=== PATIENT | male | born 1960 | race Hispanic/Latino ===

== ENCOUNTER 2019-10-08 20:42 | Observation (INO) | payer SELFPAY ==
[2019-10-08 21:31] LABS: Absolute Lymphocytes (CBC) 4.8 K/uL (0.7-4.9); Basophils % 0.9 % (0-1.3); Hematocrit 42.5 % (39.6-49.0); Lymphocytes % 41.9 % (15.3-44.8); MPV 8.3 fL (7.6-11.3); RBC Red Blood Cell Count 4.68 M/uL (4.33-5.43)
[2019-10-08 21:42] LABS: BUN Blood Urea Nitrogen 15 mg/dL (7-18); Bicarbonate 25 mmol/L (21-32); Glucose Level 132 mg/dL (74-106); Magnesium 2.2 mg/dL (1.8-2.4); Potassium 3.5 mmol/L (3.5-5.1); Sodium Level 140 mmol/L (136-145); Troponin (Emerg Dept Use Only) < 0.02 ng/mL (0.0-0.045)
--- NOTE | 2019-10-08 23:04 | ER ---
Nurse's Notes [facility] Name: Heber Peña Age: 59 yrs Sex: Male : 1960 Arrival Date: 10/08/2019 Time: 20:43 Bed 19 Private MD: Diagnosis: Headache;Numbness to left side of face Presentation: 10/08 20:51 Presenting complaint: Patient states: dizzyness, headache, blurred vision since yesterday morning. has hx of bp problems. van negative. Transition of care: patient was not received from another setting of care. Onset of symptoms was October 07, 2019 at 08:00. Risk Assessment: Do you want to hurt yourself or someone else? Patient reports no desire to harm self or others. Initial Sepsis Screen: Does the patient meet any 2 criteria? No. Patient's initial sepsis screen is negative. Does the patient have a suspected source of infection? No. Patient's initial sepsis screen is negative. Care prior to arrival: None. 20:51 Method Of Arrival: Ambulatory 20:51 Acuity: ISIDRA 3 Triage Assessment: 20:54 Headache History: The patient has had previous headaches and this one is similar to previous episodes. General: Appears in no apparent distress. comfortable, Behavior is calm, cooperative, appropriate for age. Pain: Complains of pain in top of head, left frontal area, left side of the back of head, right frontal area and right side of the back of head Pain currently is 6 out of 10 on a pain scale. Pain began gradually, 2-3 days ago. Neuro: No deficits noted. Level of Consciousness is awake, alert, obeys commands, Oriented to person, place, time, situation, Medicare Biller are equal bilaterally Moves all extremities. Full function Gait is steady, Speech is normal. 21:23 Pain: Also complains of no other associated symptoms. ls4 Historical: - Allergies: 20:50 No Known Allergies; ls4 - Home Meds: 10/09 00:25 aspirin 81 mg Oral TbEC 1 tab once daily [Active]; nitroglycerin 0.4 mg SL subl 1 tab ch [Active]; prasugrel oral oral 1 tab once daily [Active]; B complex [Active]; - PMHx: 10/08 20:50 CVA; Depression; gastritis; High Cholesterol; Hypertension; ls4 20:54 Myocardial infarction; ch - PSHx: 20:54 cardiac cath; cardiac stent; ch - Immunization history:: Adult Immunizations up to date. - Coronavirus screen:: The patient has NOT traveled to [place], [place], or [place] in the past 14 days. The patient has NOT had contact with known/suspected case of Coronavirus?. - Social history:: Smoking status: . - Ebola Screening: : Patient negative for fever greater than or equal to 101.5 degrees Fahrenheit, and additional compatible Ebola Virus Disease symptoms Patient denies exposure to infectious person Patient denies travel to an Ebola-affected area in the 21 days before illness onset No symptoms or risks identified at this time. Screenin:45 VAN Screening: Arm Drift: Patient shows no arm weakness. Patient is VAN negative. The ls4 patient has not been NPO before screening. The patient is currently on the following diet: regular The patient is alert, able to follow commands. The patient does not exhibit slurred or garbled speech The patient is not exhibiting difficulty speaking. The patient does not exhibit difficulty understanding words. The patient is able to swallow own secretions with no drooling or need for suction. Patient tolerated one teaspoon of water. No drooling, immediate coughing, gurgling, or clearing of the throat was noted. The patient tolerated 90mL of water. No drooling, immediate coughing, gurgling, or clearing of the throat was noted. The patient passed the bedside swallow screening. Oral medications may be given as ordered. Contact Physician for further diet orders. 21:22 Abuse screen: Denies threats or abuse. Denies injuries from another. Nutritional ls4 screening: No deficits noted. Tuberculosis screening: No symptoms or risk factors identified. Fall Risk None identified. Assessment: 21:46 General: Appears in no apparent distress. comfortable, Behavior is calm, cooperative. ls4 Pain: Complains of pain in face and right side of the back of head and right frontal area and left side of the back of head and left frontal area and top of head Pain currently is 7 out of 10 on a pain scale. Neuro: No deficits noted. Level of Consciousness is awake, alert, obeys commands, Oriented to person, place, time, situation, Medicare Biller are equal bilaterally Moves all extremities. Gait is steady, Speech is normal, Facial symmetry appears normal, Pupils are PERRLA, Intact Reports paresthesias in face. Cardiovascular: Denies chest pain, diaphoresis, fatigue, lightheadedness, nausea, palpitations, shortness of breath, syncope, vomiting, Heart tones S1 S2 Capillary refill < 3 seconds Clubbing of nail beds is absent JVD is absent Patient's skin is warm and dry. Rhythm is regular Chest pain is denied. Respiratory: Airway is patent Respiratory effort is even, unlabored, Respiratory pattern is regular, Breath sounds are clear bilaterally. GI: No deficits noted. : No deficits noted. Derm: Skin is pink, warm \T\ dry. Musculoskeletal: No deficits noted. 22:00 Reassessment: Patient appears in no apparent distress at this time. Patient and/or ch family updated on plan of care and expected duration. Pain level reassessed. 23:00 Reassessment: Patient appears in no apparent distress at this time. Patient and/or ch family updated on plan of care and expected duration. Pain level reassessed. Patient is alert, oriented x 3, equal unlabored respirations, skin warm/dry/pink. 10/09 00:25 Reassessment: Patient appears in no apparent distress at this time. No changes from previously documented assessment. Patient and/or family updated on plan of care and expected duration. Pain level reassessed. Patient is alert, oriented x 3, equal unlabored respirations, skin warm/dry/pink. report called to john paul Blanco orders to be in the computer. Vital Signs: 10/08 20:57 BP 166 / 92; Pulse 82; Resp 20; Temp 98.7(O); Pulse Ox 100% on R/A; Weight 75.3 kg; Height 5 ft. 5 in. (165.10 cm); Pain 6/10; 21:43 BP 144 / 91; Pulse 83; Resp 14; Pulse Ox 99% on R/A; Pain 7/10; ls4 22:40 BP 132 / 80; Pulse 82; Resp 14; Pulse Ox 99% on R/A; Pain 7/10; ls4 10/09 00:30 BP 147 / 81; Pulse 75; Resp 14; Pulse Ox 99% on R/A; Pain 6/10; ls4 10/08 20:57 Body Mass Index 27.62 (75.30 kg, 165.10 cm) Vitals: 10/08 20:57 Cardiac Rhythm Assessment Regular Sinus rhythm. ls4 [place] Coma Score: 21:10 Eye Response: spontaneous(4). Verbal Response: oriented(5). Motor Response: obeys kb commands(6). Total: 15. NIH Stroke Scale Scores: 20:45 NIHSS Score: 0 ls4 22:59 NIHSS Score: 1 kb ED Course: 20:43 Patient arrived in ED. jg7 20:48 Iram Villeda RN is Primary Nurse. ls4 20:52 Triage completed. ch 20:53 Jackelin Zuluaga FNP-C is PHCP. kb 20:53 Timo Salazar MD is Attending Physician. kb 20:57 Arm band placed on left wrist. Patient placed in an exam room, on a stretcher, on pulse ch oximetry. 21:14 CT Head Brain wo Cont In Process Unspecified. EDMS 21:18 EKG done. ls4 21:21 Patient has correct armband on for positive identification. Bed in low position. Call ls4 light in reach. Side rails up X 1. groundwater monitoring technician on. Pulse ox on. NIBP on. Warm blanket given. Verbal reassurance given. Diet: Patient is NPO. 21:21 No provider procedures requiring assistance completed. Initial lab(s) drawn, by ED ls4 staff, sent to lab. Inserted saline lock: 18 gauge in left antecubital area, using aseptic technique. Blood collected. Patient maintains SpO2 saturation greater than 95% on room air. 23:04 Sebastien Gonzalez is Hospitalizing Provider. kb 10/09 00:40 Patient admitted, IV remains in place. vc Administered Medications: 10/08 23:25 Drug: NS 0.9% 1000 ml Route: IV; Rate: 1000 ml; Site: left antecubital; ls4 23:25 Drug: Thiamine 100 mg Route: IV; Rate: calculated rate; Site: left antecubital; ls4 Outcome: 23:04 Decision to Hospitalize by Provider. kb 10/09 00:40 Admitted to Med/surg accompanied by nurse, via wheelchair, room 225, with chart, Report vc called to Francis 00:40 Condition: good vc 00:40 Instructed on the need for admit. 00:42 Patient left the ED. ls4 NIH Stroke Scale - NIH Stroke Score Date: 10/08/2019 Time: 20:45 Total Score = 0 1a. Level of Consciousness (LOC) - 0(Alert) 1b. Level of Consciousness (LOC) (Year \T\ Age) - 0(Both) 1c. LOC Commands (Open \T\ Closes Eyes/Dispatch Supervisor) - 0(Both) 2. Best Gaze (Lateral Gaze Paresis) - 0(Normal) 3. Visual Field Loss - 0(No visual loss) 4. Facial Palsy - 0(Normal) 5a. Left Arm: Motor (10-second hold) - 0(No drift) 5b. Right Arm: Motor (10-second hold) - 0(No drift) 6a. Left Leg: Motor (5-second hold - always test supine) - 0(No drift) 6b. Right Leg: Motor (5-second hold - always test supine) - 0(No drift) 7. Limb Ataxia (finger/nose \T\ heel/hernandez - test with eyes open) - 0(Absent) 8. Sensory Loss (pinprick arms/legs/face) - 0(Normal) 9. Best Language: Aphasia (description/naming/reading) - 0(No aphasia) 10. Dysarthria (speech clarity - read or repeat words) - 0(Normal) 11. Extinction and Inattention (visual/tactile/auditory/spatial/personal) - 0(No abnormality) Initials: ls4 NIH Stroke Scale - NIH Stroke Score Date: 10/08/2019 Time: 22:59 Total Score = 1 1a. Level of Consciousness (LOC) - 0(Alert) 1b. Level of Consciousness (LOC) (Year \T\ Age) - 0(Both) 1c. LOC Commands (Open \T\ Closes Eyes/Dispatch Supervisor) - 0(Both) 2. Best Gaze (Lateral Gaze Paresis) - 0(Normal) 3. Visual Field Loss - 0(No visual loss) 4. Facial Palsy - 0(Normal) 5a. Left Arm: Motor (10-second hold) - 0(No drift) 5b. Right Arm: Motor (10-second hold) - 0(No drift) 6a. Left Leg: Motor (5-second hold - always test supine) - 0(No drift) 6b. Right Leg: Motor (5-second hold - always test supine) - 0(No drift) 7. Limb Ataxia (finger/nose \T\ heel/hernandez - test with eyes open) - 0(Absent) 8. Sensory Loss (pinprick arms/legs/face) - 1(Mild to moderate loss) 9. Best Language: Aphasia (description/naming/reading) - 0(No aphasia) 10. Dysarthria (speech clarity - read or repeat words) - 0(Normal) 11. Extinction and Inattention (visual/tactile/auditory/spatial/personal) - 0(No abnormality) Initials: kb Signatures: Dispatcher [employer] Jackelin Toth, COUNTY COURT JUDGE-C COUNTY COURT JUDGE-CkSabina Narvaez, RN RN Iram Chowdhury RN RN ls4 Shalonda Lopez7 Lidia Tong RN RN vc
--- NOTE | 2019-10-08 23:05 | EDPHYS ---
Physician Documentation [facility] Name: Heber Peña Age: 59 yrs Sex: Male : 1960 Arrival Date: 10/08/2019 Time: 20:43 Bed 19 Private MD: ED Physician Timo Salazar HPI: 10/08 23:04 This 59 yrs old Male presents to ER via Ambulatory with complaints of kb Headache, High Blood Pressure, Numbness Of Face. 23:05 The patient presents to the emergency department with paresthesias of the left side of kb the face, that is mild. Onset: The symptoms/episode began/occurred yesterday. Context: occurred at home. Associated signs and symptoms: Pertinent positives: headache. Severity of symptoms: in the emergency department the symptoms are unchanged. Patient's baseline: Neuro: alert and fully oriented, Motor: no deficits, Ambulation: walks without assistance, Speech: normal, The patient has a previous history of CVA. Current symptoms: paralysis or paresis, of the left cheek, that is mild. The patient has experienced a previous episode, last week. The patient has not recently seen a physician. 23:21 Patient reports headache and numbness to left side of face that started yesterday. kb Reports similar symptoms last week that resolved.. Historical: - Allergies: 20:50 No Known Allergies; ls4 - Home Meds: 02 00:25 aspirin 81 mg Oral TbEC 1 tab once daily [Active]; nitroglycerin 0.4 mg SL subl 1 tab ch [Active]; prasugrel oral oral 1 tab once daily [Active]; B complex [Active]; - PMHx: 10/08 20:50 CVA; Depression; gastritis; High Cholesterol; Hypertension; ls4 20:54 Myocardial infarction; ch - PSHx: 20:54 cardiac cath; cardiac stent; ch - Immunization history:: Adult Immunizations up to date. - Coronavirus screen:: The patient has NOT traveled to [place], [place], or [place] in the past 14 days. The patient has NOT had contact with known/suspected case of Coronavirus?. - Social history:: Smoking status: . - Ebola Screening: : Patient negative for fever greater than or equal to 101.5 degrees Fahrenheit, and additional compatible Ebola Virus Disease symptoms Patient denies exposure to infectious person Patient denies travel to an Ebola-affected area in the 21 days before illness onset No symptoms or risks identified at this time. ROS: 21:14 Constitutional: Negative for fever, chills, and weight loss, ENT: Negative for injury, kb pain, and discharge, Neck: Negative for injury, pain, and swelling, Cardiovascular: Negative for chest pain, palpitations, and edema, Respiratory: Negative for shortness of breath, cough, wheezing, and pleuritic chest pain, Abdomen/GI: Negative for abdominal pain, nausea, vomiting, diarrhea, and constipation, Back: Negative for injury and pain, MS/Extremity: Negative for injury and deformity, Skin: Negative for injury, rash, and discoloration. 21:14 Neuro: Positive for headache, decreased sensation to left side of face. Exam: 21:10 Constitutional: This is a well developed, well nourished patient who is awake, alert, kb and in no acute distress. Head/Face: Normocephalic, atraumatic. ENT: Nares patent. No nasal discharge, no septal abnormalities noted. Tympanic membranes are normal and external auditory canals are clear. Oropharynx with no redness, swelling, or masses, exudates, or evidence of obstruction, uvula midline. Mucous membranes moist. Neck: Trachea midline, no thyromegaly or masses palpated, and no cervical lymphadenopathy. Supple, full range of motion without nuchal rigidity, or vertebral point tenderness. No Meningismus. Chest/axilla: Normal chest wall appearance and motion. Nontender with no deformity. No lesions are appreciated. Cardiovascular: Regular rate and rhythm with a normal S1 and S2. No gallops, murmurs, or rubs. Normal PMI, no JVD. No pulse deficits. Respiratory: Lungs have equal breath sounds bilaterally, clear to auscultation and percussion. No rales, rhonchi or wheezes noted. No increased work of breathing, no retractions or nasal flaring. Abdomen/GI: Soft, non-tender, with normal bowel sounds. No distension or tympany. No guarding or rebound. No evidence of tenderness throughout. Back: No spinal tenderness. No costovertebral tenderness. Full range of motion. Skin: Warm, dry with normal turgor. Normal color with no rashes, no lesions, and no evidence of cellulitis. MS/ Extremity: Pulses equal, no cyanosis. Neurovascular intact. Full, normal range of motion. Neuro: Awake and alert, GCS 15, oriented to person, place, time, and situation. Cranial nerves II-XII grossly intact. Motor strength 5/5 in all extremities. Sensory grossly intact. Cerebellar exam normal. Normal gait. Vital Signs: 20:57 BP 166 / 92; Pulse 82; Resp 20; Temp 98.7(O); Pulse Ox 100% on R/A; Weight 75.3 kg; ch Height 5 ft. 5 in. (165.10 cm); Pain 6/10; 21:43 BP 144 / 91; Pulse 83; Resp 14; Pulse Ox 99% on R/A; Pain 7/10; ls4 22:40 BP 132 / 80; Pulse 82; Resp 14; Pulse Ox 99% on R/A; Pain 7/10; ls4 10/09 00:30 BP 147 / 81; Pulse 75; Resp 14; Pulse Ox 99% on R/A; Pain 6/10; 4 10/08 20:57 Body Mass Index 27.62 (75.30 kg, 165.10 cm) NIH Stroke Scale Scores: 10/08 20:45 NIHSS Score: 0 ls4 22:59 NIHSS Score: 1 kb [place] Coma Score: 21:10 Eye Response: spontaneous(4). Verbal Response: oriented(5). Motor Response: obeys kb commands(6). Total: 15. MDM: 20:53 Patient medically screened. kb 21:10 Data reviewed: vital signs, nurses notes. Data interpreted: Pulse oximetry: on room air kb is 100 %. Interpretation: normal. 23:00 Counseling: I had a detailed discussion with the patient and/or guardian regarding: the kb historical points, exam findings, and any diagnostic results supporting the discharge/admit diagnosis, lab results, radiology results, the need for further work-up and treatment in the hospital. 10/08 20:53 Order name: Troponin (emerg Dept Use Only); Complete Time: 21:51 4 10/08 20:53 Order name: Magnesium; Complete Time: 21:51 4 10/08 20:53 Order name: Basic Metabolic Panel; Complete Time: 21:51 4 10/08 20:53 Order name: CBC with Diff; Complete Time: 21:34 [facility] 10/08 20:53 Order name: Protime (+inr) [facility] 10/08 20:53 Order name: Ptt, Activated [facility] 10/08 20:53 Order name: EKG; Complete Time: 20:54 [facility] 10/08 20:53 Order name: Cardiac monitoring; Complete Time: 21:20 4 10/08 20:53 Order name: EKG - Nurse/Tech; Complete Time: 21:20 [facility] 10/08 20:53 Order name: IV Saline Lock; Complete Time: 21:21 [facility] 10/08 20:54 Order name: CT Head Brain wo Cont kb 10/08 20:53 Order name: Labs collected and sent; Complete Time: 21:21 [facility] 10/08 20:53 Order name: NPO; Complete Time: 21:21 [facility] 10/08 20:53 Order name: O2 Per Protocol; Complete Time: 21:21 [facility] 10/08 20:53 Order name: O2 Sat Monitoring; Complete Time: 21:21 [facility] 10/08 20:53 Order name: Stroke Swallow Screen; Complete Time: 21:21 4 Administered Medications: 23:25 Drug: NS 0.9% 1000 ml Route: IV; Rate: 1000 ml; Site: left antecubital; [facility] 23:25 Drug: Thiamine 100 mg Route: IV; Rate: calculated rate; Site: left antecubital; 4 Disposition: 10/09 07:30 Co-signature as Attending Physician, Timo Salazar MD I agree with the assessment and yonas plan of care. Disposition: 10/08/19 23:04 Hospitalization ordered by Sebastien Gonzalez for Observation. Preliminary diagnosis are Headache, Numbness to left side of face. - Bed requested for Telemetry/MedSurg (observation). - Status is Observation. ls4 - Condition is Stable. - Problem is new. - Symptoms are unchanged. NIH Stroke Scale - NIH Stroke Score Date: 10/08/2019 Time: 20:45 Total Score = 0 1a. Level of Consciousness (LOC) - 0(Alert) 1b. Level of Consciousness (LOC) (Year \T\ Age) - 0(Both) 1c. LOC Commands (Open \T\ Closes Eyes/Materials Associate) - 0(Both) 2. Best Gaze (Lateral Gaze Paresis) - 0(Normal) 3. Visual Field Loss - 0(No visual loss) 4. Facial Palsy - 0(Normal) 5a. Left Arm: Motor (10-second hold) - 0(No drift) 5b. Right Arm: Motor (10-second hold) - 0(No drift) 6a. Left Leg: Motor (5-second hold - always test supine) - 0(No drift) 6b. Right Leg: Motor (5-second hold - always test supine) - 0(No drift) 7. Limb Ataxia (finger/nose \T\ heel/hernandez - test with eyes open) - 0(Absent) 8. Sensory Loss (pinprick arms/legs/face) - 0(Normal) 9. Best Language: Aphasia (description/naming/reading) - 0(No aphasia) 10. Dysarthria (speech clarity - read or repeat words) - 0(Normal) 11. Extinction and Inattention (visual/tactile/auditory/spatial/personal) - 0(No abnormality) Initials: ls4 NIH Stroke Scale - NIH Stroke Score Date: 10/08/2019 Time: 22:59 Total Score = 1 1a. Level of Consciousness (LOC) - 0(Alert) 1b. Level of Consciousness (LOC) (Year \T\ Age) - 0(Both) 1c. LOC Commands (Open \T\ Closes Eyes/Materials Associate) - 0(Both) 2. Best Gaze (Lateral Gaze Paresis) - 0(Normal) 3. Visual Field Loss - 0(No visual loss) 4. Facial Palsy - 0(Normal) 5a. Left Arm: Motor (10-second hold) - 0(No drift) 5b. Right Arm: Motor (10-second hold) - 0(No drift) 6a. Left Leg: Motor (5-second hold - always test supine) - 0(No drift) 6b. Right Leg: Motor (5-second hold - always test supine) - 0(No drift) 7. Limb Ataxia (finger/nose \T\ heel/hernandez - test with eyes open) - 0(Absent) 8. Sensory Loss (pinprick arms/legs/face) - 1(Mild to moderate loss) 9. Best Language: Aphasia (description/naming/reading) - 0(No aphasia) 10. Dysarthria (speech clarity - read or repeat words) - 0(Normal) 11. Extinction and Inattention (visual/tactile/auditory/spatial/personal) - 0(No abnormality) Initials: kb Signatures: Dispatcher [employer] EDMS Jackelin Zuluaga, DICE MANAGER-C DICE MANAGER-Ckb Sabina Zelaya, RN RN Timo Gavin MD MD cha Thompson, Moriah wi Iram Villeda RN RN ls4 Corrections: (The following items were deleted from the chart) 10/08 22:59 21:10 NIHSS Score: 0 kb kb 23:27 23:04 Hospitalization Ordered by Sebastien Gonzalez for Observation. Preliminary mt diagnosis is Headache; Numbness to left side of face. Bed requested for Telemetry/MedSurg (observation). Status is Observation. Condition is Stable. Problem is new. Symptoms are unchanged. kb 10/09 00:42 10/08 23:27 10/08/2019 23:04 Hospitalization Ordered by Sebastien Gonzalez for ls4 Observation. Preliminary diagnosis is Headache; Numbness to left side of face. Bed requested for Telemetry/MedSurg (observation). Status is Observation. Condition is Stable. Problem is new. Symptoms are unchanged. mt
[2019-10-08] MEDS ORDERED: NA CHLORIDE 0.9% 100 ML IV ONE (23:13)
[2019-10-08] MEDS ORDERED: THIAMINE 200 MG/2 ML INJ ONE (23:13)
[2019-10-08] MEDS ORDERED: NA CHLORIDE 0.9% 1,000 ML ONE (23:13)
--- NOTE | 2019-10-08 23:36 | P.HP ---
Certification for Inpatient Patient admitted to: Observation With expected LOS: <2 Midnights Practitioner: I am a practitioner with admitting privileges, knowledge of patient current condition, hospital course, and medical plan of care. Services: Services provided to patient in accordance with Admission requirements found in Title 42 Section 412.3 of the Code of Federal Regulations Patient History Date of Service: 10/09/19 Reason for admission: Left facial numbness History of Present Illness: 59-year-old Occitan-speaking gentleman with a history of multiple TIAs and CVAs in the past presented to the ED with a complaint burning sensation in his head and left-sided facial numbness. He had residual left-sided weakness from his previous stroke which resolved over time. The patient stated the burning sensation in in the head had resolved before I saw him in the ED. CT head did not show any acute disease. EKG demonstrated sinus rhythm. The patient has high risk factors for CVA including previous history and CAD. Noted he is on aspirin and Prasiguel for CAD s/p stent 3 years ago. He is placed under observation for further stroke work. Allergies No Known Allergies Allergy (Verified 10/09/19 00:48) Home Medications: Cetirizine HCl [Zyrtec] 5 mg PO DAILY 10/09/19 Nitroglycerin [Nitrostat] 0.4 mg SL PRN PRN 10/09/19 Omeprazole Magnesium [Prilosec Otc] 20 mg PO DAILY 10/09/19 Prasugrel HCl 10 mg PO DAILY 10/09/19 - Past Medical/Surgical History Diabetic: No -: Htn -: High cholesterol -: mini stroke 9 months ago -: gastritis -: depression -: high cholesterol - Family History Father -: Heart disease, Hypertension, Stroke Notes: mi - Social History Smoking Status: Never smoker Alcohol use: No CD- Drugs: No Caffeine use: Yes Review of Systems Other: General: No fever, no malaise, no unintentional weight loss. Eyes: No eye discharge, Respiratory: No cough, no shortness of breath. CVS: No chest pain, no palpitation, no lightheadedness. GI: No abdominal pain, no nausea no vomit, no constipation, no diarrhea. Genitourinary: No dysuria, no urinary frequency, no incontinence, no hematuria. Musculoskeletal: No joint pains, or joint swelling, no gait instability. Neurology: No headache, no asymmetric weakness, no problem with swallowing. Except as documented, all other systems reviewed and negative. Physical Examination - Physical Exam General: Alert, In no apparent distress, Oriented x3 HEENT: PERRLA, Mucous membr. moist/pink, EOMI, Sclerae nonicteric Neck: Supple, JVD not distended Respiratory: Clear to auscultation bilaterally, Normal air movement Cardiovascular: No edema, Regular rate/rhythm, Normal S1 S2 Capillary refill: <2 Seconds Gastrointestinal: Normal bowel sounds, Soft and benign, Non-distended, No tenderness Musculoskeletal: No erythema Integumentary: No rashes Neurological: Normal speech, Normal strength at 5/5 x4 extr, Sensation intact, Cranial nerves 3-12 intact - Studies Laboratory Data (last 24 hrs) 10/08/19 21:16: WBC 11.4 H, Hgb 14.4, Hct 42.5, Plt Count 310 10/08/19 21:16: Sodium 140, Potassium 3.5, BUN 15, Creatinine 0.83, Glucose 132 H, Magnesium 2.2 Assessment and Plan - Problems (Diagnosis) (1) Stroke-like symptoms Current Visit: Yes Status: Acute (2) History of CVA (cerebrovascular accident) Current Visit: Yes Status: Chronic (3) CAD (coronary artery disease) Current Visit: No Status: Chronic Qualifiers: Coronary Disease-Associated Artery/Lesion type: unspecified vessel or lesion type [place] vs. transplanted heart: unspecified whether [place] or transplanted heart Associated angina: with unstable angina Qualified Code(s) : I25.110 - Atherosclerotic heart disease of [place] coronary artery with unstable angina pectoris (4) Essential hypertension Onset Date: 08/14/17 Current Visit: No Status: Chronic (5) Hyperlipidemia Onset Date: 08/14/17 Current Visit: No Status: Chronic Qualifiers: Hyperlipidemia type: unspecified Qualified Code(s): E78.5 - Hyperlipidemia , unspecified - Plan Place under observation Continue aspirin and Prasuguel. Statins Telemetry Check echocardiogram MRI of the brain Check lipid profile. Blood pressure control. - Advance Directives Does patient have a Living Will: No Does patient have a Durable POA for Healthcare: No
[2019-10-09 00:47] LABS: Protime INR 0.96
[2019-10-09] MEDS ORDERED: ACETAMINOPHEN 500 MG TAB PO PRN (03:17)
[2019-10-09] MEDS ORDERED: NA CHLORIDE 0.9% 1,000 ML IV SCH (03:17)
[2019-10-09] MEDS ORDERED: ONDANSETRON 4 MG/2 ML VIAL IV PRN (03:17)
[2019-10-09 03:30] VITALS: BMI 29.2
[2019-10-09 05:41] LABS: Basophils % 0.7 % (0-1.3); Hematocrit 42.2 % (39.6-49.0); Lymphocytes % 32.8 % (15.3-44.8); MPV 8.6 fL (7.6-11.3); RBC Red Blood Cell Count 4.69 M/uL (4.33-5.43)
[2019-10-09 06:04] LABS: BUN Blood Urea Nitrogen 11 mg/dL (7-18); Bicarbonate 24 mmol/L (21-32); Glucose Level 99 mg/dL (74-106); HDL Cholesterol 50 mg/dL (40-60); LDL Cholesterol, Calculated 124 (<130); Magnesium 2.1 mg/dL (1.8-2.4); Phosphorus 2.8 mg/dL (2.5-4.9); Sodium Level 140 mmol/L (136-145)
[2019-10-09] MEDS ORDERED: INFLUENZA VACCINE (for 3y+) 0.5 ML DOSE IMVAC ONE (08:00)
--- NOTE | 2019-10-09 08:31 | RAD REPORT ---
EXAM DESCRIPTION: [place]en Single View10/08/2019 9:37 pm CLINICAL HISTORY: Hypertension COMPARISON: 2016 FINDINGS: The lungs appear clear of acute infiltrate. The heart is normal size IMPRESSION: No acute abnormalities displayed
[2019-10-09] MEDS ORDERED: ENOXAPARIN 40 MG/0.4 ML SQ SCH (09:00)
[2019-10-09] MEDS ORDERED: PRASUGREL (EFFIENT) 10 MG TAB PO SCH (09:00)
[2019-10-09] MEDS ORDERED: ASPIRIN 81 MG CHEWABLE TABLET PO SCH (09:00)
--- NOTE | 2019-10-09 09:04 | RAD REPORT ---
EXAM DESCRIPTION: MRI - Brain W/Wo Cont - 10/09/2019 8:04 am CLINICAL HISTORY: Left numbness COMPARISON: October 08, [address] TECHNIQUE: Axial, sagittal, and coronal magnetic images of the brain were obtained. Seventeen cc Mul tiHance administered intravenously FINDINGS: Mild to moderate signal within periventricular, deep and subcortical white matter probably ischemic changes secondary to small vessel disease The ventricles are normal in caliber. Diffusion-weighted/ ADC mapping sequences do not demonstrate evidence of an acute infarction. No abnormal enhancement within the brain is seen. An extra-axial fluid collection is not noted. Fluid within the sinuses/mastoids is not seen IMPRESSION: No acute abnormality displayed
--- NOTE | 2019-10-09 09:06 | RAD REPORT ---
EXAM DESCRIPTION: MRI - MRA Neck W/Wo Cont - 10/09/2019 8:04 am CLINICAL HISTORY: Numbness COMPARISON: None. TECHNIQUE: Magnetic resonance angiogram of the neck was performed. 19 cc MultiHance was administered intravenously. 3D MIPS reconstruction performed FINDINGS: Mild plaque is present the common carotid, internal carotid and external carotid arteries. A high-grade stenosis is not noted The vertebral arteries are codominant without visualization of an abnormality. IMPRESSION: Mild plaque within the carotid arteries NASCET criteria used. Mild 0-49% stenosis Moderate 50-69% stenosis Severe 70-99% stenosis
--- NOTE | 2019-10-09 09:09 | RAD REPORT ---
EXAM DESCRIPTION: MRI - MRA Head Wo Cont - 10/09/2019 7:58 am CLINICAL HISTORY: Numbness COMPARISON: None. TECHNIQUE: Magnetic resonance angiogram was performed. 3D MIPS reconstruction performed FINDINGS: The anterior cerebral, middle cerebral, posterior cerebral, distal internal carotid and ba silar arteries do not demonstrate a significant stenosis. An aneurysm is not displayed. IMPRESSION: Unremarkable MRA brain.
--- NOTE | 2019-10-09 09:10 | EKG ---
Test Date: 2019-10-08 Test Time: 21:15:42 Premium Service Representative: MOE MEASUREMENT RESULTS: Intervals: Rate: 80 IL: 146 QRSD: 88 QT: 398 QTc: 459 [place]: P: 41 IL: 146 QRS: 13 T: 18 INTERPRETIVE STATEMENTS: Normal sinus rhythm Normal ECG Compared to ECG 09/29/2016 16:24:37 Sinus tachycardia no longer present Electronically Signed On 10-09-19 09:10:02 QUALITATIVE FIELD COORDINATOR by Sascha Leonard
[2019-10-09] MEDS ORDERED: AMLODIPINE 5 MG TAB PO ONE (09:15)
[2019-10-09 09:39] VITALS: O2SAT 98
--- NOTE | 2019-10-09 09:39 | P.DS ---
Admission Date: 10/08/19 Discharge Date: 10/09/19 Disposition: ROUTINE DISCHARGE Discharge Condition: FAIR Reason for Admission: Left facial numbness - Problems (1) Stroke-like symptoms Current Visit: Yes Status: Acute (2) CAD (coronary artery disease) Current Visit: No Status: Chronic Qualifiers: Coronary Disease-Associated Artery/Lesion type: unspecified vessel or lesion type [place] vs. transplanted heart: unspecified whether [place] or transplanted heart Associated angina: with unstable angina Qualified Code(s) : I25.110 - Atherosclerotic heart disease of [place] coronary artery with unstable angina pectoris (3) Essential hypertension Onset Date: 08/14/17 Current Visit: No Status: Chronic (4) Hyperlipidemia Onset Date: 08/14/17 Current Visit: No Status: Chronic Qualifiers: Hyperlipidemia type: unspecified Qualified Code(s): E78.5 - Hyperlipidemia , unspecified Brief History of Present Illness: History of Present Illness: 59-year-old [place] African-speaking gentleman with a history of multiple TIAs and CVAs in the past presented to the ED with a complaint burning sensation in his head and left-sided facial numbness. He had residual left-sided weakness from his previous stroke which resolved over time. The patient stated the burning sensation in in the head had resolved before I saw him in the ED. CT head did not show any acute disease. EKG demonstrated sinus rhythm. The patient has high risk factors for CVA including previous history and CAD. Noted he is on aspirin and Prasiguel for CAD s/p stent 3 years ago. He is placed under observation for further stroke work. 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 Patient describes history of recurrent symptoms. He states he was taken off his blood pressure medication 3 years ago. On admission his blood pressure was initially in the 140s but t continue to climb to the high 170s with diastolic above 100. Headache and chest and numbness was felt to be due to elevated blood pressure. He had an MRI and MRA head and neck was negative for any acute infarct . His BP was controlled . He has been advised to continue all blood pressure medication with lisinopril initiated for him today. He has been recommended to follow with primary care physician in the next 1 week for repeat blood pressure check. Case management will help with insurance as well as free clinic follow-up was provided Imaging EXAM DESCRIPTION: MRI - MRA Head Wo Cont - 10/09/2019 7:58 am CLINICAL HISTORY: Numbness COMPARISON: None. TECHNIQUE: Magnetic resonance angiogram was performed. 3D MIPS reconstruction performed FINDINGS: The anterior cerebral, middle cerebral, posterior cerebral, distal internal carotid and basilar arteries do not demonstrate a significant stenosis. An aneurysm is not displayed. IMPRESSION: Unremarkable MRA brain. MRI brain FINDINGS: Mild to moderate signal within periventricular, deep and subcortical white matter probably ischemic changes secondary to small vessel disease The ventricles are normal in caliber. Diffusion-weighted/ ADC mapping sequences do not demonstrate evidence of an acute infarction. No abnormal enhancement within the brain is seen. An extra-axial fluid collection is not noted. Fluid within the sinuses/mastoids is not seen IMPRESSION: No acute abnormality displayed Vital Signs/Physical Exam: Temp Pulse Resp BP Pulse Ox 97.8 F 78 16 164/100 H 98 10/09/19 08:30 10/09/19 08:30 10/09/19 08:30 10/09/19 08:30 10/09/19 08:30 General: In no apparent distress, Oriented x3 HEENT: Atraumatic, Normocephalic, PERRLA Neck: 2+ carotid pulse no bruit, JVD not distended Respiratory: Clear to auscultation bilaterally, Normal air movement Cardiovascular: Normal pulses, Regular rate/rhythm, Normal S1 S2 Gastrointestinal: Normal bowel sounds, Soft and benign, Non-distended Musculoskeletal: No clubbing, No swelling Integumentary: No rashes, No breakdown Laboratory Data at Discharge: WBC 9.2 K/uL (4.3-10.9) D 10/09/19 05:05 Hgb 14.4 g/dL (13.6-17.9) 10/09/19 05:05 Hct 42.2 % (39.6-49.0) 10/09/19 05:05 Plt Count 305 K/uL (152-406) 10/09/19 05:05 PT 11.4 SECONDS (9.5-12.5) 10/09/19 00:34 INR 0.96 10/09/19 00:34 APTT 30.4 SECONDS (24.3-36.9) 10/09/19 00:34 Sodium 140 mmol/L (136-145) 10/09/19 05:05 Potassium 4.0 mmol/L (3.5-5.1) 10/09/19 05:05 BUN 11 mg/dL (7-18) 10/09/19 05:05 Creatinine 0.79 mg/dL (0.55-1.3) 10/09/19 05:05 Glucose 99 mg/dL (74-106) 10/09/19 05:05 Phosphorus 2.8 mg/dL (2.5-4.9) 10/09/19 05:05 Magnesium 2.1 mg/dL (1.8-2.4) 10/09/19 05:05 Triglycerides 117 mg/dL (<150) 10/09/19 05:05 Cholesterol 197 mg/dL (<200) 10/09/19 05:05 HDL Cholesterol 50 mg/dL (40-60) 10/09/19 05:05 Cholesterol/HDL Ratio 3.94 10/09/19 05:05 Home Medications: Cetirizine HCl [Zyrtec*] 5 mg PO DAILY 10/09/19 Nitroglycerin [Nitrostat*] 0.4 mg SL PRN PRN 10/09/19 Omeprazole Magnesium [Prilosec Otc] 20 mg PO DAILY 10/09/19 Prasugrel HCl 10 mg PO DAILY 10/09/19 lisinopriL [Lisinopril] 20 mg PO DAILY #30 tablet 10/09/19 New Medications: lisinopriL [Lisinopril] 20 mg PO DAILY #30 tablet Patient Discharge Instructions: Follow-up with Primary Care Clinic in 1 week for repeat blood pressure checks. Return to the ED if recurrent numbness or headaches Diet: Low sodium Activity: Ad sofiya Physician Review: Patient Assessed, Agree with Above Assessment and Plan Time spent managing pt's care (in minutes): 35
[2019-10-09] MEDS ORDERED: HYDRALAZINE HCL 20 MG/ML VIAL IV PRN (09:40)
[2019-10-09] MEDS ORDERED: SUMATRIPTAN SUCC 6MG/0.5ML VIAL SQ ONE (09:50)
--- NOTE | 2019-10-09 11:09 | RAD REPORT ---
EXAM DESCRIPTION: CT - Head Brain Wo Cont - 10/09/2019 2:05 am CLINICAL HISTORY: The patient is 59 years old and is Male; NUMBNESS TECHNIQUE: Axial computed tomography images of the head/brain without intravenous contrast. Sagitt al and coronal reformatted images were created and reviewed. This CT exam was performed using one o r more of the following dose reduction techniques: automated exposure control, adjustment of the mA and/or kV according to patient size, and/or use of iterative reconstruction technique. COMPARISON: No relevant prior studies available. FINDINGS: Brain: Unremarkable. No hemorrhage. No significant white matter disease. No edema. Ventricles: Unremarkable. No ventriculomegaly. Bones/joints: Unremarkable. No acute fracture. Soft tissues: Unremarkable. Vasculature: Atherosclerotic vascular calcifications. Sinuses: Unremarkable as visualized. No acute sinusitis. Mastoid air cells: Unremarkable as visualized. No mastoid effusion. IMPRESSION: No acute intracranial findings. Electronically signed by: Sergei Perry MD 10/08/2019 9:29 PM DIABETES MANAGER Due to temporary technical issues with the PACS/Fluency reporting system, reports are being signed by the in house radiologist as a courtesy to ensure prompt reporting. The interpreting radiologist is f ully responsible for the content of the report.
--- NOTE | 2019-10-09 11:58 | ECHO ---
HEIGHT: 5 ft 5 in WEIGHT: 176 lb 1.6 oz DATE OF STUDY: 10/09/[address]: mimi vasques 2-DIMENSIONAL: YES M.MODE: YES DOPPLER: YES COLOR FLOW: YES TDS: NO PORTABLE: NO DEFINITY: NO BUBBLE STUDY: NO DIAGNOSIS: STROKE LIKE SYMPTOMS CARDIAC HISTORY: CATHERIZATION: YES SURGERY: NO PROSTHETIC VALVE: NO PACEMAKER: NO MEASUREMENTS (cm) DIASTOLIC (NORMALS) SYSTOLIC (NORMALS) IVSd 1.0 (0.6-1.2) LA Diam 3.2 (1.9-4.0) LVEF 71% LVIDd 4.5 (3.5-5.7) LVIDs 2.7 (2.0-3.5) %FS 41% LVPWd 1.1 (0.6-1.2) Ao Diam 2.7 (2.0-3.7) 2 DIMENSIONAL ASSESSMENT: RIGHT ATRIUM: NORMAL LEFT ATRIUM: NORMAL RIGHT VENTRICLE: NORMAL LEFT VENTRICLE: NORMAL TRICUSPID VALVE: NORMAL MITRAL VALVE: NORMAL PULMONIC VALVE: NORMAL AORTIC VALVE: MILD SCLEROSIS PERICARDIAL EFFUSION: NONE AORTIC ROOT: NORMAL LEFT VENTRICULAR WALL MOTION: NORMAL. DOPPLER/COLOR FLOW: TRACE OF TRICUSPID REGURGITATION, NORMAL RIGHT VENTRICULAR SYSTOLIC PRESSURE. NO AORTIC STENOSIS, NO AORTIC REGURGITATION. COMMENTS: NORMAL LEFT VENTRICULAR EJECTION FRACTION. AORTIC SCLEROSIS WITH NO AORTIC STENOSIS/ AORTIC REGURGITATION. TRACE OF TRICUSPID REGURGITATION. TECHNOLOGIST: SERGEY RODRIGUEZ
[2019-10-09 13:24] VITALS: TEMP 97.6
[2019-10-09 14:16] VITALS: BP 159/90
[2019-10-09] MEDS ORDERED: ATORVASTATIN 20 MG TAB PO SCH (21:00)
== END 2019-10-09 14:05 | disposition home or self-care (01) ==
LOC: ER 20:42 → 2ND 23:42
PROVIDERS: ADMIT Internal Medicine; ATTEND Internal Medicine
DX: I10 Essential (primary) hypertension (principal); E78.00 Pure hypercholesterolemia, unspecified; I25.10 Atherosclerotic heart disease of native coronary artery without angina pectoris
CPT/HCPCS: 36415; 70450; 70544; 70549; 70553; 71045; 80048; 80061; 83735; 84100; 84443; 84484; 85025; 85610; 85730; 93005; 93306; 94760; 96374; 97116; 97161; 99285; A9577; G0378; J0360; J1650; J3030; J3411; J7030

== ENCOUNTER 2020-02-26 19:28 | Inpatient (IN) | payer SELFPAY ==
[2020-02-26 19:54] LABS: Absolute Lymphocytes (CBC) 4.4 K/uL (0.7-4.9); Basophils % 0.9 % (0-1.3); Hematocrit 41.5 % (39.6-49.0); Lymphocytes % 43.4 % (15.3-44.8); MPV 8.6 fL (7.6-11.3); RBC Red Blood Cell Count 4.49 M/uL (4.33-5.43)
[2020-02-26] MEDS ORDERED: ENOXAPARIN 80 MG/0.8 ML SQ ONE (19:56)
[2020-02-26] MEDS ORDERED: PANTOPRAZOLE 40 MG INJ ONE (19:56)
[2020-02-26 20:16] LABS: ALT/SGPT 34 U/L (12-78); AST/SGOT 22 U/L (15-37); Albumin 3.9 g/dL (3.4-5.0); Alkaline Phosphatase 137 U/L (45-117); BUN Blood Urea Nitrogen 17 mg/dL (7-18); Bicarbonate 23 mmol/L (21-32); Bilirubin Direct 0.1 mg/dL (0-0.2); Bilirubin Total 0.5 mg/dL (0.2-1.0); Glucose Level 116 mg/dL (74-106); NT PRO-BNP 17 pg/mL (<125); Potassium 3.5 mmol/L (3.5-5.1); Protein, Total 7.6 g/dL (6.4-8.2); Sodium Level 139 mmol/L (136-145); Troponin (Emerg Dept Use Only) < 0.02 ng/mL (0.0-0.045)
[2020-02-26] MEDS ORDERED: ASPIRIN 81 MG CHEWABLE TABLET ONE (20:25)
--- NOTE | 2020-02-26 20:39 | EDPHYS ---
Physician Documentation [facility] Name: Heber Peña Age: 60 yrs Sex: Male : 1960 Arrival Date: 02/26/2020 Time: 19:29 Bed 18 Private MD: ED Physician Timo Salazar HPI: 02/25 19:43 This 60 yrs old Male presents to ER via Ambulatory with complaints of Chest yonas Pain. 19:43 The patient or guardian reports chest pain that is located primarily in the substernal yonas area. Onset: 3 day(s) ago. The pain does not radiate. Associated signs and symptoms: Pertinent positives: abdominal pain. The chest pain is described as a pressure. Duration: The patient or guardian reports a single episode, that is now resolved. Modifying factors: The symptoms are alleviated by nothing. the symptoms are aggravated by nothing. Severity of pain: At its worst the pain was mild in the emergency department the pain is unchanged. Historical: - Allergies: 19:37 Ibuprofen; ll1 - Home Meds: 19:51 aspirin 81 mg Oral TbEC 1 tab once daily [Active]; b complex [Active]; nitroglycerin rr5 0.4 mg SL subl 1 tab [Active]; prasugrel Oral 1 tab once daily [Active]; - PMHx: 19:37 gastritis; High Cholesterol; Hypertension; Myocardial infarction; Depression; CVA; ll1 - PSHx: 19:37 cardiac stent; cardiac cath; ll1 - Immunization history:: Adult Immunizations up to date, Flu vaccine status is unknown. - Social history:: Patient/guardian denies using alcohol, street drugs, tobacco products, Smoking status: Patient denies any tobacco usage or history of. ROS: 19:44 Constitutional: Negative for fever, chills, and weight loss, Eyes: Negative for injury, yonas pain, redness, and discharge, ENT: Negative for injury, pain, and discharge, Neck: Negative for injury, pain, and swelling, Respiratory: Negative for shortness of breath, cough, wheezing, and pleuritic chest pain, Back: Negative for injury and pain, : Negative for injury, bleeding, discharge, and swelling, MS/Extremity: Negative for injury and deformity, Skin: Negative for injury, rash, and discoloration, Neuro: Negative for headache, weakness, numbness, tingling, and seizure, Psych: Negative for depression, anxiety, suicide ideation, homicidal ideation, and hallucinations, Allergy/Immunology: Negative for hives, rash, and allergies, Endocrine: Negative for neck swelling, polydipsia, polyuria, polyphagia, and marked weight changes, Hematologic/Lymphatic: Negative for swollen nodes, abnormal bleeding, and unusual bruising. 19:44 Cardiovascular: Positive for chest pain. 19:44 Abdomen/GI: Positive for abdominal pain, of the epigastric area, right upper quadrant and left upper quadrant. Exam: 19:44 Constitutional: This is a well developed, well nourished patient who is awake, alert, yonas and in no acute distress. Head/Face: Normocephalic, atraumatic. Eyes: Pupils equal round and reactive to light, extra-ocular motions intact. Lids and lashes normal. Conjunctiva and sclera are non-icteric and not injected. Cornea within normal limits. Periorbital areas with no swelling, redness, or edema. ENT: Nares patent. No nasal discharge, no septal abnormalities noted. Tympanic membranes are normal and external auditory canals are clear. Oropharynx with no redness, swelling, or masses, exudates, or evidence of obstruction, uvula midline. Mucous membranes moist. Neck: Trachea midline, no thyromegaly or masses palpated, and no cervical lymphadenopathy. Supple, full range of motion without nuchal rigidity, or vertebral point tenderness. No Meningismus. Chest/axilla: Normal chest wall appearance and motion. Nontender with no deformity. No lesions are appreciated. Cardiovascular: Regular rate and rhythm with a normal S1 and S2. No gallops, murmurs, or rubs. Normal PMI, no JVD. No pulse deficits. Respiratory: Lungs have equal breath sounds bilaterally, clear to auscultation and percussion. No rales, rhonchi or wheezes noted. No increased work of breathing, no retractions or nasal flaring. Back: No spinal tenderness. No costovertebral tenderness. Full range of motion. Male : Normal genitalia with no discharge or lesions. Skin: Warm, dry with normal turgor. Normal color with no rashes, no lesions, and no evidence of cellulitis. MS/ Extremity: Pulses equal, no cyanosis. Neurovascular intact. Full, normal range of motion. Neuro: Awake and alert, GCS 15, oriented to person, place, time, and situation. Cranial nerves II-XII grossly intact. Motor strength 5/5 in all extremities. Sensory grossly intact. Cerebellar exam normal. Normal gait. Psych: Awake, alert, with orientation to person, place and time. Behavior, mood, and affect are within normal limits. 19:44 Respiratory: the patient does not display signs of respiratory distress, Respirations: normal, no acute changes, Breath sounds: are clear throughout. 19:44 Abdomen/GI: Inspection: abdomen appears normal, Bowel sounds: normal, Palpation: mild abdominal tenderness, in the epigastric area, Liver: no appreciated palpable abnormalities, Hernia: not appreciated. 19:49 ECG was reviewed by the Attending Physician. [facility] Vital Signs: 19:35 BP 173 / 92; Pulse 88; Resp 19; Temp 97.9; Pulse Ox 100% ; Pain 9/10; ll1 19:44 Weight 76.2 kg; Height 5 ft. 5 in. (165.10 cm); rr5 20:30 BP 135 / 88; Pulse 77; Resp 17; Pulse Ox 99% ; rr5 22:30 BP 132 / 85; Pulse 71; Resp 19; Pulse Ox 98% ; ea 23:30 BP 136 / 81; Pulse 68; Resp 18; Pulse Ox 98% on R/A; ea 02/26 00:00 BP 138 / 86; Pulse 66; Resp 18; Pulse Ox 96% on R/A; ea 01:30 BP 122 / 82; Pulse 57; Resp 18; Pulse Ox 95% on R/A; ea 02:00 BP 124 / 82; Pulse 67; Resp 18; Pulse Ox 97% on R/A; ea 02/25 19:44 Body Mass Index 27.96 (76.20 kg, 165.10 cm) rr5 MDM: 02/25 19:33 Patient medically screened. [facility] 19:46 Data reviewed: vital signs, nurses notes, lab test result(s), EKG, radiologic studies, [facility] plain films. 19:47 Differential diagnosis: abnormal EKG, acute myocardial infarction, acute pericarditis, yonas anxiety, coronary artery disease cholecystitis, Cholelithiasis esophagitis, hiatal hernia, myocarditis, peptic ulcer disease, pericarditis, pneumothorax, pulmonary embolus, unstable angina, gastritis, myocardia ischemia or infarction, non-specific abd pain, pancreatitis, Ureterolithiasis. HEART Score: History: Highly Suspicious (2), ECG: Normal (0), Age: > 45 and < 65 years (1), Risk Factors: > or = 3 Risk factors for atherosclerotic disease (2), [Hypercholesterolemia] [Hypertension] [+ Family HX]. The patient was given aspirin in the Emergency Department. The patient's deep vein thrombosis risk score was calculated as follows: Total Score: 0. This patient was found to be at low risk for a deep vein thrombosis by using the Well's assessment criteria. The patient's pulmonary embolism risk score was calculated as follows: Total Score: 0-2 points. This patient was found to be at low risk for a pulmonary embolism by using the Well's assessment criteria. LEANDRA Risk Score: 1 - Three or more CAD risk factors, 1- Known CAD, 1 - ASA use in past 7 days, TOTAL SCORE = 3. Data interpreted: monitoring coordinator: rate is 88 beats/min, rhythm is normal sinus rhythm, Pulse oximetry: on room air is 100 %. 20:36 Test interpretation: by ED physician or midlevel provider: ECG, plain radiologic yonas studies. ED course: chest pain, anxious, epigastric pain. 02/25 19:34 Order name: Basic Metabolic Panel [facility] 02/25 19:34 Order name: CBC with Diff [facility] 02/25 19:34 Order name: LFT's; Complete Time: 20:35 [facility] 02/25 19:34 Order name: Magnesium; Complete Time: 20:35 [facility] 02/25 19:34 Order name: NT PRO-BNP; Complete Time: 20:35 [facility] 02/25 19:34 Order name: Troponin (emerg Dept Use Only); Complete Time: 20:35 [facility] 02/25 19:35 Order name: Basic Metabolic Panel; Complete Time: 20:35 [facility] 02/25 19:35 Order name: CBC with Automated Diff; Complete Time: 20:35 [facility] 02/25 19:43 Order name: Lipase; Complete Time: 20:35 [facility] 02/25 21:22 Order name: ABG ea 02/26 00:27 Order name: Troponin I [facility] 02/26 05:43 Order name: CBC with Automated Diff [facility] 02/26 05:48 Order name: Basic Metabolic Panel [facility] 02/26 05:52 Order name: Troponin I [facility] 02/25 19:34 Order name: XRAY Chest (1 view) [facility] 02/25 19:34 Order name: EKG; Complete Time: 19:35 [facility] 02/25 19:34 Order name: Cardiac monitoring; Complete Time: 19:41 [facility] 02/25 19:34 Order name: EKG - Nurse/Tech; Complete Time: 19:41 [facility] 02/25 19:34 Order name: IV Saline Lock; Complete Time: 19:49 [facility] 02/25 19:34 Order name: Labs collected and sent; Complete Time: 19:49 [facility] 02/25 19:34 Order name: O2 Per Protocol; Complete Time: 19:41 [facility] 02/25 19:34 Order name: O2 Sat Monitoring; Complete Time: 19:41 [facility] EC:49 Rate is 81 beats/min. Rhythm is regular. QRS [place] is Normal. MI interval is normal. QRS yonas interval is normal. QT interval is normal. No Q waves. T waves are Normal. No ST changes noted. Clinical impression: Normal ECG and No evidence of ischemia. Interpreted by me. Reviewed by me. Administered Medications: 19:53 Drug: Lovenox 1 mg/kg Route: Sub-Q; Site: right lower abdomen; rr5 21:00 Follow up: Response: No adverse reaction ea 19:54 Drug: ProTONIX 40 mg Route: IVP; Site: right antecubital; rr5 21:00 Follow up: Response: No adverse reaction ea 20:25 Drug: Aspirin 81 mg Route: PO; rr5 21:00 Follow up: Response: No adverse reaction ea Disposition: 02/26/20 20:38 Hospitalization ordered by Sebastien Gonzalez for Observation. Preliminary diagnosis are Other chest pain, Gastritis, unspecified. - Bed requested for Telemetry/MedSurg (observation). - Status is Observation. ss - Condition is Stable. - Problem is new. - Symptoms have improved. Signatures: Dispatcher [employer] EDMS Timo Salazar MD MD cha Smirch, Shelby RN RN ss Nidia Santiago RN RN tl1 Sri Francis RN RN Mariah Mehta Raymond RN RN rr5 Romeo Jean RN RN ll1 Corrections: (The following items were deleted from the chart) 02/26 01:20 02/25 20:38 Hospitalization Ordered by Sebastien Gonzalez for Observation. Preliminary tl1 diagnosis is Other chest pain; Gastritis, unspecified. Bed requested for Telemetry/MedSurg (observation). Status is Observation. Condition is Stable. Problem is new. Symptoms have improved. yonas 02/26 07:55 01:20 02/26/2020 20:38 Hospitalization Ordered by Sebastien Gonzalez for Observation. eb Preliminary diagnosis is Other chest pain; Gastritis, unspecified. Bed requested for [facility] ER HOLD. Status is Observation. Condition is Stable. Problem is new. Symptoms have improved. tl1 08:26 07:55 02/26/2020 20:38 Hospitalization Ordered by Sebastien Gonzalez for Observation. ss Preliminary diagnosis is Other chest pain; Gastritis, unspecified. Bed requested for Telemetry/MedSurg (observation). Status is Observation. Condition is Stable. Problem is new. Symptoms have improved. eb
--- NOTE | 2020-02-26 20:39 | ER ---
Nurse's Notes [facility] Name: Heber Peña Age: 60 yrs Sex: Male : 1960 Arrival Date: 02/26/2020 Time: 19:29 Bed 18 Private MD: Diagnosis: Other chest pain;Gastritis, unspecified Presentation: 02/25 19:35 Chief complaint: Patient states: CP and SOB began today. States it feels the same as ll1 his last heart attack 6 months ago. Coronavirus screen: Proceed with normal triage. Patient denies a cough. Patient reports shortness of breath or difficulty breathing. Patient denies measured and/or subjective temperature greater than 100.4F prior to today's visit. Patient denies travel on a cruise ship or to a country the [facility] currently lists as an affected area. Patient denies contact with known and/or suspected case of COVID-19. Ebola Screen: Patient denies travel to an Ebola-affected area in the 21 days before illness onset. Initial Sepsis Screen: Does the patient meet any 2 criteria? No. Patient's initial sepsis screen is negative. Risk Assessment: Do you want to hurt yourself or someone else? Patient reports no desire to harm self or others. Onset of symptoms was February 26, 2020. 19:35 Method Of Arrival: Ambulatory ll1 19:35 Acuity: ISIDRA 2 ll1 19:35 Initial Sepsis Screen: Does the patient have a suspected source of infection? No. rr5 Patient's initial sepsis screen is negative. Historical: - Allergies: 19:37 Ibuprofen; ll1 - Home Meds: 19:51 aspirin 81 mg Oral TbEC 1 tab once daily [Active]; b complex [Active]; nitroglycerin rr5 0.4 mg SL subl 1 tab [Active]; prasugrel Oral 1 tab once daily [Active]; - PMHx: 19:37 gastritis; High Cholesterol; Hypertension; Myocardial infarction; Depression; CVA; ll1 - PSHx: 19:37 cardiac stent; cardiac cath; ll1 - Immunization history:: Adult Immunizations up to date, Flu vaccine status is unknown. - Social history:: Patient/guardian denies using alcohol, street drugs, tobacco products, Smoking status: Patient denies any tobacco usage or history of. Screenin:41 Abuse screen: Denies threats or abuse. Denies injuries from another. Nutritional rr5 screening: No deficits noted. Tuberculosis screening: No symptoms or risk factors identified. Fall Risk IV access (20 points). Total Youngblood Fall Scale indicates No Risk (0-24 pts). Assessment: 19:49 General: Appears uncomfortable, Behavior is appropriate for age. Pain: Complains of ea pain in epigastric area Pain radiates to neck Pain began 2-3 days ago. Neuro: Level of Consciousness is awake, alert, obeys commands, Oriented to person, place, time, situation. Cardiovascular: Patient's skin is warm and dry. Respiratory: Airway is patent Respiratory effort is even, unlabored, Respiratory pattern is regular, symmetrical. Derm: Skin is clammy, Skin is normal, Skin temperature is warm. 20:30 Reassessment: Patient appears in no apparent distress at this time. No changes from rr5 previously documented assessment. Patient is alert, oriented x 3, equal unlabored respirations, skin warm/dry/pink. awaiting for results. 21:21 Reassessment: Patient appears in no apparent distress at this time. Patient and/or rr5 family updated on plan of care and expected duration. Pain level reassessed. explained to patient and daughter that he is for admission. saad holt daughter [phone] contact number. 21:35 Reassessment: hospitalist at bedside examined the patient. rr5 23:00 Reassessment: Patient appears in no apparent distress at this time. Patient is alert, rr5 oriented x 3, equal unlabored respirations, skin warm/dry/pink. for admission under ER hold. 02/26 00:00 Reassessment: Patient and/or family updated on plan of care and expected duration. Pain ea level reassessed. Patient is alert, oriented x 3, equal unlabored respirations, skin warm/dry/pink. 01:30 Reassessment: Patient and/or family updated on plan of care and expected duration. Pain ea level reassessed. Patient is alert, oriented x 3, equal unlabored respirations, skin warm/dry/pink. Vital Signs: 02/25 19:35 BP 173 / 92; Pulse 88; Resp 19; Temp 97.9; Pulse Ox 100% ; Pain 9/10; ll1 19:44 Weight 76.2 kg; Height 5 ft. 5 in. (165.10 cm); rr5 20:30 BP 135 / 88; Pulse 77; Resp 17; Pulse Ox 99% ; rr5 22:30 BP 132 / 85; Pulse 71; Resp 19; Pulse Ox 98% ; ea 23:30 BP 136 / 81; Pulse 68; Resp 18; Pulse Ox 98% on R/A; ea 02/26 00:00 BP 138 / 86; Pulse 66; Resp 18; Pulse Ox 96% on R/A; ea 01:30 BP 122 / 82; Pulse 57; Resp 18; Pulse Ox 95% on R/A; ea 02:00 BP 124 / 82; Pulse 67; Resp 18; Pulse Ox 97% on R/A; ea 02/25 19:44 Body Mass Index 27.96 (76.20 kg, 165.10 cm) rr5 ED Course: 02/25 19:29 Patient arrived in ED. cl3 19:33 Timo Salazar MD is Attending Physician. yonas 19:37 Triage completed. ll1 19:37 Arm band placed on Patient placed in an exam room, on a stretcher. ll1 19:41 Rah Chan, RN is Primary Nurse. rr5 19:41 Patient has correct armband on for positive identification. Placed in gown. Bed in low rr5 position. Call light in reach. Side rails up X2. classroom monitor on. Pulse ox on. NIBP on. 19:41 No provider procedures requiring assistance completed. Patient maintains SpO2 rr5 saturation greater than 95% on room air. 20:27 XRAY Chest (1 view) In Process Unspecified. EDMS 20:37 Sebastien Gonzalez is Hospitalizing Provider. yonas 02/26 01:40 Patient admitted, IV remains in place. ea 01:58 intact, No redness/swelling at site. rr5 07:44 Primary Nurse role handed off by Rah Chan, RN rr5 Administered Medications: 02/25 19:53 Drug: Lovenox 1 mg/kg Route: Sub-Q; Site: right lower abdomen; rr5 21:00 Follow up: Response: No adverse reaction ea 19:54 Drug: ProTONIX 40 mg Route: IVP; Site: right antecubital; rr5 21:00 Follow up: Response: No adverse reaction ea 20:25 Drug: Aspirin 81 mg Route: PO; rr5 21:00 Follow up: Response: No adverse reaction ea Outcome: 20:38 Decision to Hospitalize by Provider. yonas 21:00 Admitted to ER Hold. Please see [facility] for further documentation. ea 21:00 Instructed on the need for admit. 02/26 01:39 Condition: stable ea 08:26 Patient left the ED. Signatures: Dispatcher [employer] EDTimo Mendoza MD MD cha Smirch, Shelby RN RN ss Sri Francis RN RN Rah Pemberton RN RN rr5 Mimi Jean3 Romeo Jean RN RN ll1
--- NOTE | 2020-02-26 22:38 | RAD REPORT ---
EXAM DESCRIPTION: RAD - Chest Single View - 02/26/2020 8:27 pm CLINICAL HISTORY: CHEST PAIN COMPARISON: Portable October 08 TECHNIQUE: AP portable chest image was obtained 02/26/2020 8:27 pm . FINDINGS: No focal mass or consolidation. Interstitial pattern is similar to fractionally increased over comparison. Heart size is similar. Trachea is midline. Vasculature is not substantially differen t. No measurable pleural effusion and no pneumothorax. No acute bony abnormality seen. No acute aorti c findings suspected. IMPRESSION: No mass or consolidation. Interstitial markings are similar to fractionally increased. A very minimal edema or infiltrate is po ssible and can be correlated with clinical presentation.
--- NOTE | 2020-02-26 22:41 | P.HP ---
Certification for Inpatient Patient admitted to: Observation With expected LOS: <2 Midnights Practitioner: I am a practitioner with admitting privileges, knowledge of patient current condition, hospital course, and medical plan of care. Services: Services provided to patient in accordance with Admission requirements found in Title 42 Section 412.3 of the Code of Federal Regulations Patient History Date of Service: 02/26/20 Reason for admission: Chest discomfort History of Present Illness: 60-year-old [place]-speaking gentleman with a history of coronary artery disease status post stent 1 year ago, on Effient therapy presented emergency department with a complaint chest discomfort, abdominal bloating, and heart burn. Patient stated he developed numbness in the right arm with his symptoms and was concerned that his symptoms were related to his heart. He experienced similar symptoms leading to the placement of the cardiac stent. Patient denies any relieving or aggravating factors. He was symptom-free during my examination in the ED. His initial troponin in the ED is negative. Chest x-ray demonstrates increased interstitial markings. EKG demonstrates sinus rhythm and no significant ischemic changes. Patient has not seen a mental health nurse practitioner since placement of his cardiac stent 1 year ago but reports compliance with his Effient. Patient is placed under observation for ACS rule out. Allergies ibuprofen Allergy (Intermediate, Verified 10/09/19 08:37) Shortness of breath Home Medications: Cetirizine HCl [Zyrtec*] 5 mg PO DAILY 10/09/19 Nitroglycerin [Nitrostat*] 0.4 mg SL PRN PRN 10/09/19 Omeprazole Magnesium [Prilosec Otc] 20 mg PO DAILY 10/09/19 Prasugrel HCl 10 mg PO DAILY 10/09/19 lisinopriL [Lisinopril] 20 mg PO DAILY #30 tablet 10/09/19 - Past Medical/Surgical History Diabetic: No -: Htn -: High cholesterol -: mini stroke 9 months ago -: gastritis -: depression -: high cholesterol -: cardiac cath -: cardiac stent - Family History Father -: Heart disease, Hypertension, Stroke Notes: mi - Social History Smoking Status: Never smoker Alcohol use: No CD- Drugs: No Caffeine use: Yes Review of Systems Other: Except as documented, all other systems reviewed and negative. Physical Examination - Physical Exam General: Alert, In no apparent distress HEENT: PERRLA, Mucous membr. moist/pink, Sclerae nonicteric Neck: Supple, JVD not distended Respiratory: Clear to auscultation bilaterally, Normal air movement Cardiovascular: No edema, Regular rate/rhythm, Normal S1 S2, No murmurs Capillary refill: <2 Seconds Gastrointestinal: Normal bowel sounds, Soft and benign, No tenderness Musculoskeletal: No swelling, No erythema Integumentary: No rashes Neurological: Normal speech, Normal strength at 5/5 x4 extr - Studies Laboratory Data (last 24 hrs) 02/26/20 19:42: Lipase 163 02/26/20 19:42: WBC 10.1, Hgb 14.1, Hct 41.5, Plt Count 316 02/26/20 19:42: Sodium 139, Potassium 3.5, BUN 17, Creatinine 1.09, Glucose 116 H, Magnesium 2.0, Total Bilirubin 0.5, AST 22, ALT 34, Alkaline Phosphatase 137 H Assessment and Plan - Problems (Diagnosis) (1) Chest pain Current Visit: Yes Status: Acute (2) CAD (coronary artery disease) Current Visit: No Status: Chronic Qualifiers: Coronary Disease-Associated Artery/Lesion type: unspecified vessel or lesion type [place] vs. transplanted heart: unspecified whether [place] or transplanted heart Associated angina: with unstable angina Qualified Code(s): I25.110 - Atherosclerotic heart disease of [place] coronary artery with unstable angina pectoris (3) Hyperlipidemia Onset Date: 08/14/17 Current Visit: No Status: Chronic Qualifiers: Hyperlipidemia type: unspecified Qualified Code(s): E78.5 - Hyperlipidemia, unspecified (4) GERD (gastroesophageal reflux disease) Current Visit: No Status: Suspected Qualifiers: Esophagitis presence: esophagitis presence not specified Qualified Code(s): K21.9 - Gastro-esophageal reflux disease without esophagitis - Plan Place under observation. Trend troponin Double antiplatelet therapy-ASA and Effient. Cardiology consult Nuclear stress test. Protonix for GERD Check lipid profile. - Advance Directives Does patient have a Living Will: No Does patient have a Durable POA for Healthcare: No
[2020-02-26] MEDS ORDERED: MAGNES/ALUMIN/SIMET 30ML UCUP PO PRN (23:51)
[2020-02-26] MEDS ORDERED: NITROGLYCERIN 0.4 MG/TAB SL PRN (23:51)
[2020-02-27] MEDS ORDERED: MAGNE/ALUM HYDROXD 30 ML UCUP ONE (00:01)
[2020-02-27 04:55] VITALS: BMI 27.9
[2020-02-27 05:35] LABS: Basophils % 0.8 % (0-1.3); Hematocrit 40.4 % (39.6-49.0); Lymphocytes % 23.1 % (15.3-44.8); MPV 8.9 fL (7.6-11.3); RBC Red Blood Cell Count 4.34 M/uL (4.33-5.43)
[2020-02-27 05:47] LABS: BUN Blood Urea Nitrogen 15 mg/dL (7-18); Bicarbonate 24 mmol/L (21-32); Glucose Level 105 mg/dL (74-106); Potassium 4.1 mmol/L (3.5-5.1); Sodium Level 140 mmol/L (136-145)
[2020-02-27 08:47] VITALS: O2SAT 97
[2020-02-27] MEDS: METOPROLOL TAR 50 MG TAB PO SCH ×2 (09:00→09:32)
[2020-02-27] MEDS ORDERED: ASPIRIN EC 81 MG TAB PO SCH (09:00)
[2020-02-27] MEDS ORDERED: ENOXAPARIN 40 MG/0.4 ML SQ SCH (09:00)
[2020-02-27 09:13] VITALS: TEMP 98.6
--- NOTE | 2020-02-27 09:34 | CON ---
Date of Consultation: 02/27/2020 Reason For Consultation: Chest pain. History Of Present Illness: Patient is a 60-year-old Latin-Beninese male who has no primary care [facility]. He has had a history of CVA, has had a history of obtuse marginal stent [place] [address] David clark, has a history of depression, hypertension, dyslipidemia, and gastritis. He only takes aspirin at home. He came in with morbid epigastric burning and kind of chest pain. To him it felt more like hi s gastritis. He said it was very different from his pain when he had his stent in 2017. He was also hypertensive. He denied any nausea, vomiting, diaphoresis, PND, orthopnea, pedal edema, palpitation s, or syncope. His EKG was normal. Troponin was negative. All his blood work was negative. His ch est x-ray was negative. Past Medical History: As stated above. Allergies: HE IS ALLERGIC TO MOTRIN. Review of Systems: Negative. Social History: Negative. Family History: Noncontributory. Physical Examination: General: He was pleasant, in no acute distress. He feels great now. Vital Signs: Stable, afebrile. HEENT: Negative. Neck: Supple with no bruit. Chest: Clear to auscultation and percussion. Cardiac: Revealed regular rhythm and rate. No murmurs, gallops, or rubs. Abdomen: Benign. Extremities: Revealed no clubbing, cyanosis, or edema. Diagnostic Data: Stated earlier. Impression And Plan: 1.Atypical chest pain, most likely gastritis. 2.Hypertension, poorly controlled. 3.Dyslipidemia. 4.Gastritis. 5.History of coronary artery disease, status post stent of the OM. 6.History of cerebrovascular accident in the past. I think this needs to be on aspirin, beta-stephanie, statin, Protonix or some other proton pump inhibitor. Dr. Gonzalez already ordered echo and a stress test on him. We will see what those shows prior to making final decisions. He was inst ructed on low-fat, low-cholesterol, low-sodium diet. He needs to follow up with an MD on a regular b asis. NB/MODL Voice ID: [id number] Report ID: [id number]
[2020-02-27] MEDS ORDERED: REGADENOSON 0.4 MG/5 ML SYR IV ONE (09:36)
--- NOTE | 2020-02-27 11:57 | RAD REPORT ---
EXAM DESCRIPTION: NM - Rest Stress Cardiac Imaging - 02/27/2020 11:50 am CLINICAL HISTORY: CP Chest pain. COMPARISON: No comparisons TECHNIQUE: The patient was administered approximately 10mCi of Tc 99m Sestamibi prior to resting SPE CT imaging of the heart. The patient was then administered approximately 30 mCi of Tc 99m Sestamibi f ollowing exercise or pharmacologic stress. Multiplanar SPECT images were reviewed. FINDINGS: No stress induced ischemic defect is seen to suggest stress induced ischemia. No fixed def ect is seen to suggest hibernating myocardium or scarred myocardium. The end diastolic volume is 92 ml, the end systolic volume is 39 ml, and the ejection fraction is 57 %. IMPRESSION: No stress induced ischemia.
[2020-02-27 12:04] VITALS: BP 149/83
[2020-02-27] MEDS ORDERED: NITROGLYCERIN 0.4 MG/TAB SL PRN (12:07)
--- NOTE | 2020-02-27 14:05 | P.DS ---
Admission Date: 02/27/20 Discharge Date: 02/27/20 Disposition: ROUTINE DISCHARGE Discharge Condition: GOOD Reason for Admission: Chest discomfort - Problems (1) Chest pain Current Visit: Yes Status: Acute (2) CAD (coronary artery disease) Current Visit: No Status: Chronic Qualifiers: Coronary Disease-Associated Artery/Lesion type: unspecified vessel or lesion type [place] vs. transplanted heart: unspecified whether [place] or transplanted heart Associated angina: with unstable angina Qualified Code(s): I25.110 - Atherosclerotic heart disease of [place] coronary artery with unstable angina pectoris (3) Essential hypertension Onset Date: 08/14/17 Current Visit: No Status: Chronic (4) History of CVA (cerebrovascular accident) Current Visit: No Status: Chronic (5) Hyperlipidemia Onset Date: 08/14/17 Current Visit: No Status: Chronic Qualifiers: Hyperlipidemia type: unspecified Qualified Code(s): E78.5 - Hyperlipidemia, unspecified (6) Gastritis Current Visit: Yes Status: Acute Brief History of Present Illness: Please refer to H&P Hospital Course: Patient is a 60-year-old Central African-speaking male with a past medical history of hypertension, hyperlipidemia, CVA, and coronary artery disease status post PCI 1 year ago. He is currently on aspirin and Prasugrel. He was admitted for ACS rule out of 3 presented with chest pain. ACS was ruled out and negative cardiac enzymes. Nuclear stress test was unremarkable. The symptoms are most likely concerning for a gastrointestinal issue such as gastritis. His medications were reconciled as per Cardiology recommendation to include at least a beta stephanie, statin and possibly PPI. During our encounter, patient was chest pain free. Daughter at bedside. Vital Signs/Physical Exam: Temp Pulse Resp BP Pulse Ox 98.6 F 70 17 149/83 H 98 02/27/20 12:00 02/27/20 12:00 02/27/20 12:00 02/27/20 12:00 02/27/20 12:00 General: Alert, In no apparent distress, Cooperative HEENT: Atraumatic, Normocephalic, EOMI Neck: Supple Respiratory: Clear to auscultation bilaterally, Normal air movement Cardiovascular: No edema, Normal pulses, Regular rate/rhythm, Normal S1 S2 Musculoskeletal: No clubbing, No swelling, No contractures, No erythema, No tenderness, No warmth Integumentary: No rashes, No breakdown, No significant lesion, No tenderness/swelling, No erythema, No warmth, No cyanosis Neurological: Normal speech, Sensation intact, Normal affect Laboratory Data at Discharge: WBC 8.8 K/uL (4.3-10.9) 02/27/20 05:16 Hgb 13.5 g/dL (13.6-17.9) L 02/27/20 05:16 Hct 40.4 % (39.6-49.0) 02/27/20 05:16 Plt Count 271 K/uL (152-406) 02/27/20 05:16 Sodium 140 mmol/L (136-145) 02/27/20 05:16 Potassium 4.1 mmol/L (3.5-5.1) 02/27/20 05:16 BUN 15 mg/dL (7-18) 02/27/20 05:16 Creatinine 0.85 mg/dL (0.55-1.3) 02/27/20 05:16 Glucose 105 mg/dL (74-106) 02/27/20 05:16 Magnesium 2.0 mg/dL (1.8-2.4) 02/26/20 19:42 Total Bilirubin 0.5 mg/dL (0.2-1.0) 02/26/20 19:42 AST 22 U/L (15-37) 02/26/20 19:42 ALT 34 U/L (12-78) 02/26/20 19:42 Alkaline Phosphatase 137 U/L (45-117) H 02/26/20 19:42 Troponin I < 0.02 ng/mL (0.0-0.045) 02/27/20 05:16 Lipase 163 U/L (73-393) 02/26/20 19:42 Home Medications: Nitroglycerin [Nitrostat*] 0.4 mg SL PRN PRN 10/09/19 Prasugrel HCl 10 mg PO DAILY 10/09/19 Aspirin [[place] Aspirin] 81 mg PO DAILY 02/27/20 Atorvastatin Calcium 40 mg PO BEDTIME #30 tablet 02/27/20 Metoprolol Tartrate [Lopressor*] 25 mg PO BID #60 tab 02/27/20 Pantoprazole [Protonix Tab*] 40 mg PO DAILY #30 tab 02/27/20 New Medications: Atorvastatin Calcium 40 mg PO BEDTIME #30 tablet Metoprolol Tartrate [Lopressor*] 25 mg PO BID #60 tab Pantoprazole [Protonix Tab*] 40 mg PO DAILY #30 tab Diet: AHA
--- NOTE | 2020-02-28 08:53 | ECHO ---
HEIGHT: 5 ft 5 in WEIGHT: 168 lb 0 oz DATE OF STUDY: 02/27/[address]: mimi vasques 2-DIMENSIONAL: YES M.MODE: YES DOPPLER: YES COLOR FLOW: YES TDS: NO PORTABLE: NO DEFINITY: NO BUBBLE STUDY: NO DIAGNOSIS: CORONARY ARTERY DISEASE CARDIAC HISTORY: CATHERIZATION: YES SURGERY: NO PROSTHETIC VALVE: NO PACEMAKER: NO MEASUREMENTS (cm) DIASTOLIC (NORMALS) SYSTOLIC (NORMALS) IVSd 0.9 (0.6-1.2) LA Diam 2.9 (1.9-4.0) LVEF 74% LVIDd 4.0 (3.5-5.7) LVIDs 2.3 (2.0-3.5) %FS 42% LVPWd 1.1 (0.6-1.2) Ao Diam 2.8 (2.0-3.7) 2 DIMENSIONAL ASSESSMENT: RIGHT ATRIUM: NORMAL LEFT ATRIUM: NORMAL RIGHT VENTRICLE: NORMAL LEFT VENTRICLE: NORMAL TRICUSPID VALVE: NORMAL MITRAL VALVE: NORMAL PULMONIC VALVE: NORMAL AORTIC VALVE: AREA OF CALCIFICATION PERICARDIAL EFFUSION: NONE AORTIC ROOT: NORMAL LEFT VENTRICULAR WALL MOTION: NORMAL DOPPLER/COLOR FLOW: NORMAL COMMENTS: NORMAL LEFT VENTRICULAR EJECTION FRACTION 55-60% WITH NORMAL WALL MOTION. NORMAL DIASTOLIC FUNCTION. AREA OF THICKNESS OR CALCIFICATION OF THE AORTIC VALVE, NO AORTIC STENOSIS, LIKELY CALCIFICATION BUT IF THERE IS A CONCERN ABOUT OTHER CAUSES LIKE VEGETATION A TRANSESOPHAGEAL ECHOCARDIOGRAM WILL BE HELPFUL. TECHNOLOGIST: Go MEDINA
--- NOTE | 2020-02-28 08:59 | TREADPHA ---
DX: CORONARY ARTERY DISEASE WITH CHEST PAIN Date of Study: 02/27/2020 Ht: 5' 5 " Wt: 168 lb 0 oz Consulting Physician: ROSALINA MEDICATIONS: MAALOX, ASPIRIN, LOVENOX, LOPRESSOR, NITROSTAT HISTORY: 60 YEAR OLD MALE ADDMITTED FOR CHEST PAIN. HISTORY OF GERD, CARDIAC STENT X1, AND HYPERTENSION. PHYSICIAL EXAMINATION: RESTING B.P.: 135/87 RESTING H.R.: 68 RESTING EKG: NORMAL SINUS RHYTHM, NO ABNORMALITIES PROTOCOL: LEXISCAN EXERCISE TIME: 3:30 B.P. AT [place] STRESS: 153/86 IMPRESSION: LEXISCAN STRESS TEST PERFORMED. CARDIOLITE INJECTED PER PROTOCOL. NO SUPRAVENTRICULAR TACHYCARDIA, VENTRICULAR TACHYCARDIA OR ARRYTHMIAS NOTED. PATIENT DENIED CHEST PAIN. RESPIRATORY EVEN AND NONLABORED. TOLERATED WELL. SEE NUCLEAR MEDICINE REPORT. NO EKG CHANGES WITH LEXISCAN.
[2020-02-28] MEDS ORDERED: ASPIRIN 81 MG CHEWABLE TABLET PO SCH (09:00)
[2020-02-28] MEDS ORDERED: PRASUGREL (EFFIENT) 10 MG TAB PO SCH (09:00)
== END 2020-02-27 15:20 | disposition home or self-care (01) | DRG 392 ==
LOC: ER 19:28 → ERHOLD 22:49 → OBSVTOIN 02-27 08:02 → 4TH 02-27 08:18
PROVIDERS: ADMIT Internal Medicine; ATTEND Internal Medicine
DX: K29.70 Gastritis, unspecified, without bleeding (principal); I25.110 Atherosclerotic heart disease of native coronary artery with unstable angina pectoris; I10 Essential (primary) hypertension; E78.5 Hyperlipidemia, unspecified; K21.9 Gastro-esophageal reflux disease without esophagitis; I25.2 Old myocardial infarction; Z79.82 Long term (current) use of aspirin; Z95.5 Presence of coronary angioplasty implant and graft; Z79.899 Other long term (current) drug therapy; Z86.73 Personal history of transient ischemic attack (TIA), and cerebral infarction without residual deficits; Z88.8 Allergy status to other drugs, medicaments and biological substances
CPT/HCPCS: 36415; 71045; 78452; 80048; 80076; 83690; 83735; 83880; 84484; 85025; 93005; 93017; 93306; 96372; 96374; 99285; A9500; C9113; G0378; J1650; J2785

== ENCOUNTER 2020-04-30 11:40 | Inpatient (IN) | payer SELFPAY ==
[2020-04-30] MEDS ORDERED: NA CHLORIDE 0.9% 2,000 ML ONE (12:36)
[2020-04-30 12:40] LABS: Absolute Lymphocytes (CBC) 3.2 K/uL (0.7-4.9); Basophils % 0.5 % (0-1.3); Hematocrit 44.6 % (39.6-49.0); Lymphocytes % 18.4 % (15.3-44.8); MPV 9.1 fL (7.6-11.3); RBC Red Blood Cell Count 4.83 M/uL (4.33-5.43)
[2020-04-30 12:55] LABS: Potassium 4.2 mmol/L (3.5-5.1)
--- NOTE | 2020-04-30 13:20 | EDPHYS ---
Physician Documentation [facility] Name: Heber Peña Age: 60 yrs Sex: Male : 1960 Arrival Date: 04/30/2020 Time: 11:44 Bed 5 Private MD: ED Physician Main Rivera HPI: 04/30 12:31 This 60 yrs old Male presents to ER via Unassigned with complaints of rn Dehydration, Blood Pressure Problem - low. 12:31 Reports working outside in sun 2 days ago, was feeling really weak, shaky, told by rn manufacturing maintenance mechanic to come in for eval. Reports feels better now but BP is low. Denies sob/chest pain/syncope/focal neuro complaint. . Onset: The symptoms/episode began/occurred 2 day(s) ago. Severity of symptoms: At their worst the symptoms were moderate in the emergency department the symptoms are unchanged. The patient has not experienced similar symptoms in the past. The patient has not recently seen a physician. Historical: - Allergies: 12:13 Ibuprofen; aa5 12:13 Ketorolac; aa5 - Home Meds: 12:14 aspirin 81 mg Oral TbEC 1 tab once daily [Active]; pantoprazole 40 mg oral TbEC 1 tab aa5 once daily [Active]; atorvastatin 40 mg oral tab 1 tab once daily [Active]; lisinopril 20 mg Oral tab 1 tab once daily [Active]; prasugrel oral 10mg daily oral [Active]; - PMHx: 12:13 CVA; Depression; gastritis; High Cholesterol; Hypertension; Myocardial infarction; aa5 - PSHx: 12:13 cardiac stent; cardiac cath; aa5 - Immunization history:: Adult Immunizations unknown. - Social history:: Smoking status: Patient denies any tobacco usage or history of. - Family history:: not pertinent. - Hospitalizations: : No recent hospitalization is reported. ROS: 12:31 Constitutional: Negative for fever, chills, and weight loss, Eyes: Negative for injury, rn pain, redness, and discharge, Neck: Negative for injury, pain, and swelling, Cardiovascular: Negative for chest pain, palpitations, and edema, Respiratory: Negative for shortness of breath, cough, wheezing, and pleuritic chest pain, Abdomen/GI: Negative for abdominal pain, nausea, vomiting, diarrhea, and constipation, MS/Extremity: Negative for injury and deformity, Skin: Negative for injury, rash, and discoloration, Neuro: Negative for headache, numbness, tingling, and seizure. Exam: 12:31 Constitutional: This is a well developed, well nourished patient who is awake, alert, rn and in no acute distress. Head/Face: Normocephalic, atraumatic. ENT: dry MM Neck: No JVD Cardiovascular: Regular rate and rhythm. No pulse deficits. Respiratory: No increased work of breathing, no retractions or nasal flaring. Abdomen/GI: Soft, non-tender Skin: Warm, dry MS/ Extremity: Pulses equal, no cyanosis. Neurovascular intact. Full, normal range of motion. Equal circumference. Neuro: Awake and alert, GCS 15, oriented to person, place, time, and situation. Cranial nerves II-XII grossly intact. Motor strength 5/5 in all extremities. Sensory grossly intact. Vital Signs: 12:13 BP 76 / 54; Pulse 73; Resp 18 S; Temp 98.6(O); Pulse Ox 99% on R/A; Weight 71.67 kg aa5 (R); Height 5 ft. 5 in. (165.10 cm) (R); Pain 0/10; 13:30 BP 104 / 64; Pulse 65; Resp 17; Pulse Ox 100% ; bp 14:21 BP 99 / 63; Pulse 64; Resp 17; Pulse Ox 99% ; bp 16:26 BP 95 / 59; Pulse 75; Resp 16; Pulse Ox 97% ; bp 12:13 Body Mass Index 26.29 (71.67 kg, 165.10 cm) aa5 MDM: 12:18 Patient medically screened. rn 13:16 Differential Diagnosis heat exhaustion, kidney failure, dehydration, rhabdomyolysis.. rn Data reviewed: vital signs, nurses notes, lab test result(s), and as a result, I will discharge patient. Counseling: I had a detailed discussion with the patient and/or guardian regarding: the historical points, exam findings, and any diagnostic results supporting the discharge/admit diagnosis, lab results, the need for further work-up and treatment in the hospital. Response to treatment: the patient's symptoms have mildly improved after treatment, and as a result, I will admit patient. Admission orders: after a detailed discussion of the patient's condition and case, the admit orders are written by me. ED course: Pt with acute kidney failure, Creatinine 8, BP improving with fluids, currently 101/66. Will admit to Dr. Barroso.. 04/30 12:24 Order name: CBC with Diff; Complete Time: 13:15 rn 04/30 12:24 Order name: Basic Metabolic Panel; Complete Time: 13:15 rn 04/30 12:24 Order name: CK; Complete Time: 13:15 rn 04/30 14:26 Order name: CBC with Automated Diff [facility] 04/30 14:26 Order name: CBC with Automated Diff [facility] 04/30 14:26 Order name: Comprehensive Metabolic Panel [facility] 04/30 14:26 Order name: Comprehensive Metabolic Panel [facility] 04/30 14:26 Order name: Protime (+INR) [facility] 04/30 14:26 Order name: Protime (+INR) [facility] 04/30 14:26 Order name: PTT, Activated Partial Thromb [facility] 04/30 14:26 Order name: PTT, Activated Partial Thromb [facility] 04/30 14:30 Order name: Urine Microalbumin/Creatinine [facility] 04/30 15:13 Order name: Urine Dipstick--Ancillary (enter results) [facility] 04/30 16:43 Order name: Urine Dipstick-Ancillary [facility] 04/30 12:24 Order name: IV Start; Complete Time: 12:33 rn 04/30 12:24 Order name: EKG - Nurse/Tech; Complete Time: 12:33 rn 04/30 12:24 Order name: EKG; Complete Time: 12:24 rn 04/30 14:26 Order name: CONS Pharmacy Consult [facility] 04/30 14:26 Order name: CONS Physician Consult [facility] 04/30 14:26 Order name: Renal EDDC 04/30 14:30 Order name: Renal Ultrasound-Complete; Complete Time: 16:00 EDDC 04/30 14:47 Order name: Diet Renal; Complete Time: 14:47 aa5 Administered Medications: 12:20 Drug: NS 0.9% 1000 ml Route: IV; Rate: 1000 ml; Site: right antecubital; aa5 16:43 Follow up: IV Status: Completed infusion; IV Intake: 1000ml bp 12:20 Drug: NS 0.9% 1000 ml Route: IV; Rate: 1000 ml; Site: right antecubital; aa5 16:42 Follow up: IV Status: Completed infusion; IV Intake: 1000ml bp Disposition: 04/30/20 13:20 Hospitalization ordered by Izabela Barroso for Inpatient Admission. Preliminary diagnosis are Acute kidney failure, Hypotension, unspecified. - Bed requested for Telemetry/MedSurg (Inpatient). - Status is Inpatient Admission. bp - Condition is Stable. - Problem is new. - Symptoms are unchanged. Signatures: Dispatcher [employer] EDMS Tanna Juan RN RN dw Nieto, Roman, MD MD rn Calderon, Audri, RN RN aa5 Gerald Owens RN RN bp Corrections: (The following items were deleted from the chart) 15:54 13:20 Hospitalization Ordered by Izabela Barroso MD for Inpatient Admission. Preliminary dw diagnosis is Acute kidney failure; Hypotension, unspecified. Bed requested for Telemetry/MedSurg (Inpatient). Status is Inpatient Admission. Condition is Stable. Problem is new. Symptoms are unchanged. rn 16:58 15:54 04/30/2020 13:20 Hospitalization Ordered by Izabela Barroso MD for Inpatient bp Admission. Preliminary diagnosis is Acute kidney failure; Hypotension, unspecified. Bed requested for Telemetry/MedSurg (Inpatient). Status is Inpatient Admission. Condition is Stable. Problem is new. Symptoms are unchanged. dw
--- NOTE | 2020-04-30 13:20 | ER ---
Nurse's Notes [facility] Name: Heber Peña Age: 60 yrs Sex: Male : 1960 Arrival Date: 04/30/2020 Time: 11:44 Bed 5 Private MD: Diagnosis: Acute kidney failure;Hypotension, unspecified Presentation: 04/30 12:12 Method Of Arrival: Wheelchair aa5 12:12 Coronavirus screen: Client denies travel out of the [place] in the last 14 days. At this aa5 time, the client does not indicate any symptoms associated with coronavirus-19. Ebola Screen: Patient negative for fever greater than or equal to 101.5 degrees Fahrenheit, and additional compatible Ebola Virus Disease symptoms. Initial Sepsis Screen: Does the patient meet any 2 criteria? Systolic BP < 90 mmHg. Does the patient have a suspected source of infection? No. Patient's initial sepsis screen is negative. Risk Assessment: Do you want to hurt yourself or someone else? Patient reports no desire to harm self or others. Onset of symptoms was April 2020. 12:12 Acuity: ISIDRA 2 aa5 12:12 Chief complaint: Patient states: "I've been working outside for the last 2 days and aa5 yesterday I was cramping all over". Pt's daughter states "his blood pressure has been 78/40 without improvement since yesterday". Pt denies nausea/vomiting/diarrhea, denies fever. Pt also reports decreased urination. Triage Assessment: 12:15 General: Appears in no apparent distress. comfortable, Behavior is calm, cooperative, bp appropriate for age. Pain: Denies pain. EENT: No deficits noted. Neuro: No deficits noted. Cardiovascular: No deficits noted. Respiratory: No deficits noted. GI: No signs and/or symptoms were reported involving the gastrointestinal system. : No signs and/or symptoms were reported regarding the genitourinary system. Derm: No deficits noted. Musculoskeletal: No deficits noted. Historical: - Allergies: 12:13 Ibuprofen; aa5 12:13 Ketorolac; aa5 - Home Meds: 12:14 aspirin 81 mg Oral TbEC 1 tab once daily [Active]; pantoprazole 40 mg oral TbEC 1 tab aa5 once daily [Active]; atorvastatin 40 mg oral tab 1 tab once daily [Active]; lisinopril 20 mg Oral tab 1 tab once daily [Active]; prasugrel oral 10mg daily oral [Active]; - PMHx: 12:13 CVA; Depression; gastritis; High Cholesterol; Hypertension; Myocardial infarction; aa5 - PSHx: 12:13 cardiac stent; cardiac cath; aa5 - Immunization history:: Adult Immunizations unknown. - Social history:: Smoking status: Patient denies any tobacco usage or history of. - Family history:: not pertinent. - Hospitalizations: : No recent hospitalization is reported. Screenin:15 Abuse screen: Denies threats or abuse. Denies injuries from another. Nutritional bp screening: No deficits noted. Tuberculosis screening: No symptoms or risk factors identified. Fall Risk None identified. Assessment: 12:15 General: SEE TRIAGE NOTE. bp 14:15 Reassessment: ALL CURRENT ORDERS COMPLETED, ADMIT IN PROCESS. bp 16:41 Reassessment: ADMIT COMPLETED, REPORT TO ROBB QUINTANA FOR RM 218. bp Vital Signs: 12:13 BP 76 / 54; Pulse 73; Resp 18 S; Temp 98.6(O); Pulse Ox 99% on R/A; Weight 71.67 kg aa5 (R); Height 5 ft. 5 in. (165.10 cm) (R); Pain 0/10; 13:30 BP 104 / 64; Pulse 65; Resp 17; Pulse Ox 100% ; bp 14:21 BP 99 / 63; Pulse 64; Resp 17; Pulse Ox 99% ; bp 16:26 BP 95 / 59; Pulse 75; Resp 16; Pulse Ox 97% ; bp 12:13 Body Mass Index 26.29 (71.67 kg, 165.10 cm) aa5 ED Course: 11:44 Patient arrived in ED. as 12:12 Arm band placed on Patient placed in an exam room, on a stretcher. aa5 12:15 Patient has correct armband on for positive identification. Bed in low position. Call bp light in reach. Side rails up X2. 12:17 Gerald Owens, RN is Primary Nurse. bp 12:18 Main Rivera MD is Attending Physician. rn 12:20 Inserted saline lock: 20 gauge in right antecubital area, using aseptic technique. IV aa5 inserted by YODIT Amaya. 12:25 Initial lab(s) drawn, by me, EKG done, by ED staff, reviewed by Main Rivera MD. kj1 12:34 Triage completed. aa5 13:19 Izabela Barroso MD is Hospitalizing Provider. rn 16:41 No provider procedures requiring assistance completed. Patient admitted, IV remains in bp place. Administered Medications: 12:20 Drug: NS 0.9% 1000 ml Route: IV; Rate: 1000 ml; Site: right antecubital; aa5 16:43 Follow up: IV Status: Completed infusion; IV Intake: 1000ml bp 12:20 Drug: NS 0.9% 1000 ml Route: IV; Rate: 1000 ml; Site: right antecubital; aa5 16:42 Follow up: IV Status: Completed infusion; IV Intake: 1000ml bp Intake: 16:42 IV: 1000ml; Total: 1000ml. bp 16:43 IV: 1000ml; Total: 2000ml. bp Outcome: 13:20 Decision to Hospitalize by Provider. rn 16:41 Admitted to Med/surg accompanied by tech, via wheelchair, room 218, with chart, Report bp called to ROBB QUINTANA 16:41 Condition: stable 16:41 Instructed on the need for admit. 16:58 Patient left the ED. bp Signatures: Jeri Banegas Roman, MD MD rn Calderon, Audri RN RN aa5 Gerald Owens RN RN bp Monique Zuluaga kj1 Corrections: (The following items were deleted from the chart) 12:33 12:25 Inserted saline lock: 20 gauge in right antecubital area, using aseptic aa5 technique. Blood collected. kj1 12:41 12:12 Chief complaint: Patient states: "I've been working outside for the last 2 days aa5 and yesterday I was cramping all over". Pt's daughter states "his blood pressure has been 78/40 without improvement since yesterday". Pt denies nausea/vomiting/diarrhea, denies fever. aa5
[2020-04-30] MEDS ORDERED: ONDANSETRON 4 MG/2 ML VIAL IV PRN (14:23)
[2020-04-30] MEDS ORDERED: MORPHINE 2 MG/ML SYR IV PRN (14:23)
[2020-04-30] MEDS ORDERED: ACETAMINOPHEN 500 MG TAB PO PRN (14:23)
[2020-04-30] MEDS ORDERED: D5W 1,000 ML with NA BICARB 8.4% 50 MEQ IV SCH ×2 (15:00)
--- NOTE | 2020-04-30 15:38 | RAD REPORT ---
EXAM DESCRIPTION: US - Renal Ultrasound-Complete - 04/30/2020 3:23 pm CLINICAL HISTORY: CARLOS Flank pain COMPARISON: No comparisons FINDINGS: Both kidneys are normal in size, shape and echotexture. The right kidney measures 12.2 x 5.0 x 4.8 cm. No hydronephrosis, focal mass or perinephric fluid. The left kidney measures 11.1 x 6.3 x 4.8 cm. No hydronephrosis, focal mass or perinephric fluid. The urinary bladder is incompletely distended without gross abnormality seen. IMPRESSION: Unremarkable renal sonogram.
[2020-04-30 16:42] LABS: Urine Blood 1+ (NEG); Urine Glucose NEGATIVE (NEG); Urine Protein 1+ (NEG); Urine Specific Gravity 1.015 (1.005-1.030)
[2020-04-30] MEDS: ATORVASTATIN 40 MG TAB PO SCH (19:55)
[2020-04-30] MEDS: METOPROLOL TAR 25 MG TAB PO SCH (21:00)
--- NOTE | 2020-04-30 22:10 | P.CNS ---
Date of Consult: 04/30/20 Reason for Consult: CARLOS Requesting Physician: Izabela Barroso Chief Complaint: Muscle cramping History of Present Illness: 60 yo HM presented to the ER with 24 hours of moderate, progressive muscle spasm with associated myalgia complicated CARLOS and Hyponatremia. Associated dark urine. 12:31 This 60 yrs old Male presents to ER via Unassigned with complaints of rn Dehydration, Blood Pressure Problem - low. 12:31 Reports working outside in sun 2 days ago, was feeling really weak, shaky, told by rn slinger sequins to come in for eval. Reports feels better now but BP is low. Denies sob/chest pain/syncope/focal neuro complaint. . Onset: The symptoms/episode began/occurred 2 day(s) ago. Severity of symptoms: At their worst the symptoms were moderate in the emergency department the symptoms are unchanged. The patient has not experienced similar symptoms in the past. The patient has not recently seen a physician. Allergies ibuprofen Allergy (Intermediate, Verified 10/09/19 08:37) Shortness of breath Home medications list reviewed: Yes Home Medications: Nitroglycerin [Nitrostat*] 0.4 mg SL PRN PRN 10/09/19 Prasugrel HCl 10 mg PO DAILY 10/09/19 Aspirin [[place] Aspirin] 81 mg PO DAILY 02/27/20 Atorvastatin Calcium 40 mg PO BEDTIME #30 tablet 02/27/20 Metoprolol Tartrate [Lopressor*] 25 mg PO BID #60 tab 02/27/20 Pantoprazole [Protonix Tab*] 40 mg PO DAILY #30 tab 02/27/20 - Past Medical/Surgical History Diabetic: No -: Htn -: High cholesterol -: mini stroke 9 months ago -: gastritis -: depression -: high cholesterol -: cardiac cath -: cardiac stent - Family History Father Medical History: Heart disease, Hypertension, Stroke Notes: mi - Social History Smoking Status: Never smoker, Unknown if ever smoked Alcohol use: No CD- Drugs: No Caffeine use: Yes Place of Residence: Home Review of Systems 10-point ROS is otherwise unremarkable General: Weakness Neurological: Weakness Physical Examination Temp Pulse Resp BP Pulse Ox 97.3 F 89 18 112/65 98 04/30/20 17:04/30/20 17:04/30/20 17:04/30/20 17:05 04/30/20 17:05 General: In no apparent distress, Oriented x3, Cooperative HEENT: Atraumatic Neck: Supple, JVD not distended Respiratory: Clear to auscultation bilaterally Cardiovascular: No edema, Regular rate/rhythm Gastrointestinal: Soft and benign, Non-distended, No guarding Musculoskeletal: No clubbing, No contractures Integumentary: No rashes, No cyanosis Neurological: Normal speech Laboratory Data (last 24 hrs) 04/30/20 12:25: Sodium 128 L, Potassium 4.2, BUN 84 H, Creatinine 8.33 H*, Glucose 119 H 04/30/20 12:25: WBC 17.4 H, Hgb 15.1, Hct 44.6, Plt Count 348 Imagings Data: EXAM DESCRIPTION: US - Renal Ultrasound-Complete - 04/30/2020 3:23 pm CLINICAL HISTORY: CARLOS Flank pain COMPARISON: No comparisons FINDINGS: Both kidneys are normal in size, shape and echotexture. The right kidney measures 12.2 x 5.0 x 4.8 cm. No hydronephrosis, focal mass or perinephric fluid. The left kidney measures 11.1 x 6.3 x 4.8 cm. No hydronephrosis, focal mass or perinephric fluid The urinary bladder is incompletely distended without gross abnormality seen. IMPRESSION: Unremarkable renal sonogram. Conclusions/Impression: A/ CARLOS likely prerenal azotemia complicated by ATN Hyponatremia Acidosis Hypocalcemia Mild Rhabdomyolysis Proteinuria HTN complicated by hypotension. P/ Continue current POC and Medications. Change IVF to NS. IVF bolus as needed. Hold antihypertensives. Start oral bicarb. Start Vitamin D. No NSAIDs. AM labs. Daily weight. Thank you kindly for the consultation.
[2020-04-30] MEDS: SODIUM BICARB 325 MG TAB PO SCH (22:53)
[2020-04-30] MEDS: NA CHLORIDE 0.9% 1,000 ML IV SCH (22:54)
[2020-05-01] MEDS: NA CHLORIDE 0.9% 1,000 ML IV SCH ×3 (04:10→21:41)
[2020-05-01 04:16] LABS: Urine Appearance CLEAR; Urine Bilirubin NEGATIVE (NEG); Urine Blood TRACE (NEG); Urine Color YELLOW; Urine Glucose NEGATIVE (NEG); Urine Protein TRACE (NEG); Urine Specific Gravity 1.015 (1.005-1.030); Urine Urobilinogen 0.2 mg/dL (0.2-1.0); Urine pH 5.5 (5.0-7.0)
[2020-05-01 04:17] LABS: Basophils % 0.3 % (0-1.3); Hematocrit 38.5 % (39.6-49.0); Lymphocytes % 22.6 % (15.3-44.8); MPV 9.1 fL (7.6-11.3); Protime INR 0.98; RBC Red Blood Cell Count 4.18 M/uL (4.33-5.43)
[2020-05-01 04:37] LABS: Urine Bacteria <20 /HPF (NONE SEEN); Urine Culture Reflex Order NOT NEEDED; Urine Mucus SLIGHT /HPF (NONE SEEN); Urine RBC NONE SEEN /HPF (NONE SEEN); Urine Urothelial Cells <5 /HPF (NONE SEEN)
[2020-05-01 04:48] LABS: Albumin 3.1 g/dL (3.4-5.0); Bilirubin Total 0.9 mg/dL (0.2-1.0); Magnesium 2.7 mg/dL (1.8-2.4); Potassium 4.6 mmol/L (3.5-5.1); Protein, Total 6.3 g/dL (6.4-8.2); Uric Acid 10.7 mg/dL (3.5-7.2)
[2020-05-01] MEDS: METOPROLOL TAR 25 MG TAB PO SCH ×2 (11:28→21:42)
[2020-05-01] MEDS: CALCITROL 0.25 MCG CAP PO SCH (11:29)
[2020-05-01] MEDS: PANTOPRAZOLE 40MG TABLET PO SCH (11:31)
[2020-05-01] MEDS: PRASUGREL (EFFIENT) 10 MG TAB PO SCH (11:31)
[2020-05-01] MEDS: ASPIRIN 81 MG CHEWABLE TABLET PO SCH (11:32)
[2020-05-01] MEDS: DOCUSATE NA 100 MG CAP PO SCH ×2 (11:32→21:00)
[2020-05-01] MEDS: SODIUM BICARB 325 MG TAB PO SCH ×4 (11:32→21:43)
[2020-05-01] MEDS: VITAMIN D 5,000 UNIT CAP PO SCH (11:32)
--- NOTE | 2020-05-01 12:26 | P.HP ---
Certification for Inpatient Patient admitted to: Inpatient With expected LOS: >2 Midnights Patient will require the following post-hospital care: None Practitioner: I am a practitioner with admitting privileges, knowledge of patient current condition, hospital course, and medical plan of care. Services: Services provided to patient in accordance with Admission requirements found in Title 42 Section 412.3 of the Code of Federal Regulations Patient History Date of Service: 04/30/20 Reason for admission: Muscle cramping/acute kidney injury History of Present Illness: Patient's the 60-year-old gentleman came to the hospital with acute kidney injury. Patient was having muscle cramps and has talk to his family doctor who recommended trying to increase his oral intake. Did this but he was not feeling any better. He is having significant dysuria as well. He continued to feel worse so he called the EMS who said that he should drain pickle juice. He did this and he did fill little bit better but he had generalized weakness pain he decided to come into the hospital for further evaluation. In the ER patient's symptoms were evaluated and his labs revealed acute kidney injury. His creatinine was greater than 8. Patient was admitted to the hospital for severe dehydration and renal insufficiency. We started him on aggressive IV hydration. Continue monitoring closely. Allergies ibuprofen Allergy (Intermediate, Verified 10/09/19 08:37) Shortness of breath Home Medications: Nitroglycerin [Nitrostat*] 0.4 mg SL PRN PRN 10/09/19 Prasugrel HCl 10 mg PO DAILY 10/09/19 Aspirin [[place] Aspirin] 81 mg PO DAILY 02/27/20 Atorvastatin Calcium 40 mg PO BEDTIME #30 tablet 02/27/20 Metoprolol Tartrate [Lopressor*] 25 mg PO BID #60 tab 02/27/20 Pantoprazole [Protonix Tab*] 40 mg PO DAILY #30 tab 02/27/20 - Past Medical/Surgical History Diabetic: No -: Htn -: High cholesterol -: mini stroke 9 months ago -: gastritis -: depression -: high cholesterol -: cardiac cath -: cardiac stent - Family History Father Medical History: Heart disease, Hypertension, Stroke Notes: mi - Social History Alcohol use: No CD- Drugs: No Caffeine use: Yes Place of Residence: Home Review of Systems 10-point ROS is otherwise unremarkable Physical Examination - Vital Signs Temperature: 97.5 F Blood Pressure: 114/67 Pulse: 77 Respirations: 16 Pulse Ox (%): 99 - Physical Exam General: Alert, In no apparent distress, Oriented x3 HEENT: Atraumatic, PERRLA, Mucous membr. moist/pink, EOMI, Sclerae nonicteric Neck: Supple, 2+ carotid pulse no bruit, No LAD, Without JVD or thyroid abnor mality Respiratory: Clear to auscultation bilaterally, Normal air movement Cardiovascular: Regular rate/rhythm, Normal S1 S2, No murmurs Gastrointestinal: Normal bowel sounds, Soft and benign, Non-distended, No tenderness Musculoskeletal: No clubbing, No swelling, No tenderness Integumentary: No rashes Neurological: Normal gait, Normal speech, Normal strength at 5/5 x4 extr, Normal tone, Sensation intact, Cranial nerves 3-12 intact, Normal affect Lymphatics: No axilla or inguinal lymphadenopathy - Studies Laboratory Data (last 24 hrs) 04/30/20 12:25: Sodium 128 L, Potassium 4.2, BUN 84 H, Creatinine 8.33 H*, Glucose 119 H 04/30/20 12:25: WBC 17.4 H, Hgb 15.1, Hct 44.6, Plt Count 348 Assessment & Plan - Problems (Diagnosis) (1) Acute kidney injury Current Visit: Yes Status: Acute (2) Non-STEMI (non-ST elevated myocardial infarction) Onset Date: 08/14/17 Current Visit: No Status: Acute (3) CAD (coronary artery disease) Current Visit: No Status: Chronic Qualifiers: Coronary Disease-Associated Artery/Lesion type: unspecified vessel or lesion type [place] vs. transplanted heart: unspecified whether [place] or transplanted heart Associated angina: with unstable angina Qualified Code(s): I25.110 - Atherosclerotic heart disease of [place] coronary artery with unstable angina pectoris (4) Essential hypertension Onset Date: 08/14/17 Current Visit: No Status: Chronic (5) History of CVA (cerebrovascular accident) Current Visit: No Status: Chronic (6) Hyperlipidemia Onset Date: 08/14/17 Current Visit: No Status: Chronic Qualifiers: Hyperlipidemia type: unspecified Qualified Code(s): E78.5 - Hyperlipidemia, unspecified - Plan Plan: 1. Aggressive IV hydration 2. Monitor renal function 3. Renal ultrasound 4. Urine for protein and creatinine 5. Nephrology consultation 6. GI and DVT prophylaxis Discharge Plan: Home Plan to discharge in: Greater than 2 days - Advance Directives Does patient have a Living Will: No Does patient have a Durable POA for Healthcare: No - Code Status/Comfort Care Code Status Assessed: Yes Code Status: Full Code Critical Care: No Time Spent Managing PTS Care (In Minutes): 45
--- NOTE | 2020-05-01 16:51 | P.PN ---
Subjective Date of Service: 05/01/20 Subjective: No new changes, No C/O voiced, Improving Patient is clinically doing much better. Voiding appropriately. Tolerating diet. As renal function continues to improve anticipate discharge home in the morning. Review of Systems 10-point ROS is otherwise unremarkable Physical Examination - Vital Signs Temperature: 97.8 F Blood Pressure: 121/74 Pulse: 71 Respirations: 16 Pulse Ox (%): 98 - Physical Exam General: Alert, In no apparent distress, Oriented x3 Respiratory: Clear to auscultation bilaterally, Normal air movement Cardiovascular: Regular rate/rhythm, Normal S1 S2, No murmurs Gastrointestinal: Normal bowel sounds, Soft and benign, Non-distended, No tenderness Musculoskeletal: No clubbing, No swelling, No tenderness Neurological: Sensation intact, Cranial nerves 3-12 intact - Studies Medications List Reviewed: Yes Assessment & Plan - Problems (Diagnosis) (1) Acute kidney injury Current Visit: Yes Status: Acute (2) Non-STEMI (non-ST elevated myocardial infarction) Onset Date: 08/14/17 Current Visit: No Status: Acute (3) CAD (coronary artery disease) Current Visit: No Status: Chronic Qualifiers: Coronary Disease-Associated Artery/Lesion type: unspecified vessel or lesion type [place] vs. transplanted heart: unspecified whether [place] or transplanted heart Associated angina: with unstable angina Qualified Code(s): I25.110 - Atherosclerotic heart disease of [place] coronary artery with unstable angina pectoris (4) Essential hypertension Onset Date: 08/14/17 Current Visit: No Status: Chronic (5) History of CVA (cerebrovascular accident) Current Visit: No Status: Chronic (6) Hyperlipidemia Onset Date: 08/14/17 Current Visit: No Status: Chronic Qualifiers: Hyperlipidemia type: unspecified Qualified Code(s): E78.5 - Hyperlipidemia, unspecified - Plan Plan: 1. Aggressive IV hydration 2. Monitor renal function; patient with significant improvement over the last 24 hours 3. Renal ultrasound; no significant abnormalities 4. Urine for protein and creatinine 5. Nephrology consultation appreciated 6. GI and DVT prophylaxis Discharge Plan: Home Plan to discharge in: Greater than 2 days - Advance Directives Does patient have a Living Will: No Does patient have a Durable POA for Healthcare: No - Code Status/Comfort Care Code Status: Full Code Critical Care: No Time Spent Managing PTS Care (In Minutes): 30
--- NOTE | 2020-05-01 21:16 | P.PN ---
Date of Service: 05/01/20 Vital Signs Temp Pulse Resp BP Pulse Ox 97.9 F 74 18 126/79 94 05/01/20 20:00 05/01/20 20:00 05/01/20 20:00 05/01/20 20:00 05/01/20 20:00 Medications Acetaminophen (Tylenol -Extra Strength) 500 mg PO Q6H PRN PRN Reason: pain/fever Stop: 05/30/20 14:24 Aspirin (Aspirin Chewable) 81 mg PO DAILY [facility] Stop: 05/31/20 09:01 Last Admin: 05/01/20 11:32 Dose: 81 mg Documented by: Atorvastatin Calcium (Lipitor) 40 mg PO BEDTIME [facility] Stop: 05/30/20 21:01 Last Admin: 04/30/20 19:55 Dose: 40 mg Documented by: Calcitriol (Rocaltrol) 0.5 mcg PO DAILY [facility] Stop: 05/31/20 09:01 Last Admin: 05/01/20 11:29 Dose: 0.5 mcg Documented by: Cholecalciferol (Vitamin D 5,000 Iu Cap) 5,000 unit PO DAILY [facility] Stop: 05/31/20 09:01 Last Admin: 05/01/20 11:32 Dose: 5,000 unit Documented by: Docusate Sodium (Colace Cap) 100 mg PO BID [facility] Stop: 05/31/20 09:01 Last Admin: 05/01/20 11:32 Dose: 100 mg Documented by: Sodium Chloride (Ns 1000 Ml Ivbag) 1,000 mls @ 125 mls/hr IV .Q8H [facility] Stop: 05/30/20 23:01 Last Admin: 05/01/20 13:23 Dose: 1,000 mls Documented by: Metoprolol Tartrate (Lopressor) 25 mg PO BID [facility] Stop: 05/30/20 21:01 Last Admin: 05/01/20 11:28 Dose: 25 mg Documented by: Morphine Sulfate (Morphine Sulfate) 2 mg IV Q4H PRN PRN Reason: Pain scale 5-7 (Moderate) Stop: 05/30/20 14:24 Ondansetron HCl (Zofran) 4 mg IV Q4H PRN PRN Reason: NAUSEA / VOMITING Stop: 05/30/20 14:24 Pantoprazole Sodium (Protonix Tab) 40 mg PO DAILY [facility]; Protocol Stop: 05/31/20 09:01 Last Admin: 05/01/20 11:31 Dose: 40 mg Documented by: Prasugrel (Effient) 10 mg PO DAILY [facility] Stop: 05/31/20 09:01 Last Admin: 05/01/20 11:31 Dose: 10 mg Documented by: Sodium Bicarbonate (Sodium Bicarb 325 Mg) 650 mg PO QID [facility] Stop: 05/30/20 22:16 Last Admin: 05/01/20 17:10 Dose: 650 mg Documented by: Sodium Chloride (Normal Saline Flush) 10 ml IV BID [facility]ALDO Stop: 05/30/20 21:01 Last Admin: 05/01/20 11:33 Dose: 10 ml Documented by: Assessment/ Plan: Nephrology CPS stable without CP or SOB. Feeling better. No acute events overnight. General: In no apparent distress, Oriented x3, Cooperative HEENT: Atraumatic Neck: Supple, JVD not distended Respiratory: Clear to auscultation bilaterally Cardiovascular: No edema, Regular rate/rhythm Gastrointestinal: Soft and benign, Non-distended, No guarding Musculoskeletal: No clubbing, No contractures Integumentary: No rashes, No cyanosis Neurological: Normal speech Laboratory Data (last 24 hrs) 04/30/20 12:25: Sodium 128 L, Potassium 4.2, BUN 84 H, Creatinine 8.33 H*, Glucose 119 H 04/30/20 12:25: WBC 17.4 H, Hgb 15.1, Hct 44.6, Plt Count 348 Imagings Data: EXAM DESCRIPTION: US - Renal Ultrasound-Complete - 04/30/2020 3:23 pm CLINICAL HISTORY: CARLOS Flank pain COMPARISON: No comparisons FINDINGS: Both kidneys are normal in size, shape and echotexture. The right kidney measures 12.2 x 5.0 x 4.8 cm. No hydronephrosis, focal mass or perinephric fluid. The left kidney measures 11.1 x 6.3 x 4.8 cm. No hydronephrosis, focal mass or perinephric fluid The urinary bladder is incompletely distended without gross abnormality seen. IMPRESSION: Unremarkable renal sonogram. Conclusions/Impression: A/ CARLOS likely prerenal azotemia complicated by ATN Hyponatremia Acidosis Hypocalcemia Mild Rhabdomyolysis Proteinuria HTN complicated by hypotension. P/ Continue current POC and Medications. Continue IVF. Hold antihypertensives. Continue oral bicarb. No NSAIDs. AM labs. Daily weight.
[2020-05-01] MEDS: ATORVASTATIN 40 MG TAB PO SCH (21:43)
[2020-05-02] MEDS: NA CHLORIDE 0.9% 1,000 ML IV SCH (05:30)
[2020-05-02 05:45] VITALS: BMI 27.3
--- NOTE | 2020-05-02 05:50 | EKG ---
Test Date: 2020-04-30 Test Time: 12:32:38 Offensive Coordinator: YOUSIF MEASUREMENT RESULTS: Intervals: Rate: 70 UT: 156 QRSD: 90 QT: 388 QTc: 419 [place]: P: 44 UT: 156 QRS: 52 T: 29 INTERPRETIVE STATEMENTS: Normal sinus rhythm Normal ECG Compared to ECG 02/27/2020 14:46:25 No significant changes Electronically Signed On 05-02-20 05:45:40 CDT by Kody Khan
[2020-05-02 06:59] LABS: Absolute Lymphocytes (CBC) 3.3 K/uL (0.7-4.9); Basophils % 0.3 % (0-1.3); Lymphocytes % 26.9 % (15.3-44.8); MPV 9.3 fL (7.6-11.3); RBC Red Blood Cell Count 4.08 M/uL (4.33-5.43)
[2020-05-02 07:15] LABS: Magnesium 2.7 mg/dL (1.8-2.4); Phosphorus 1.5 mg/dL (2.5-4.9); Potassium 4.4 mmol/L (3.5-5.1)
[2020-05-02] MEDS: VITAMIN D 5,000 UNIT CAP PO SCH (08:23)
[2020-05-02] MEDS: CALCITROL 0.25 MCG CAP PO SCH (08:23)
[2020-05-02] MEDS: PANTOPRAZOLE 40MG TABLET PO SCH (08:23)
[2020-05-02] MEDS: SODIUM BICARB 325 MG TAB PO SCH (08:23)
[2020-05-02] MEDS: DOCUSATE NA 100 MG CAP PO SCH (08:24)
[2020-05-02] MEDS: PRASUGREL (EFFIENT) 10 MG TAB PO SCH (08:24)
[2020-05-02] MEDS: ASPIRIN 81 MG CHEWABLE TABLET PO SCH (08:24)
[2020-05-02] MEDS: METOPROLOL TAR 25 MG TAB PO SCH (08:24)
[2020-05-02 08:27] VITALS: BP 140/75
[2020-05-02 09:03] VITALS: TEMP 97.3
--- NOTE | 2020-05-02 09:06 | P.DS ---
Admission Date: 04/30/20 Discharge Date: 05/02/20 Primary Care Provider: none Disposition: ROUTINE DISCHARGE Discharge Condition: GOOD Reason for Admission: Muscle cramping/acute kidney injury Consultations: Nephrology-Dr. Cope Procedures: Renal US: FINDINGS: Both kidneys are normal in size, shape and echotexture. The right kidney measures 12.2 x 5.0 x 4.8 cm. No hydronephrosis, focal mass or perinephric fluid. The left kidney measures 11.1 x 6.3 x 4.8 cm. No hydronephrosis, focal mass or perinephric fluid. The urinary bladder is incompletely distended without gross abnormality seen. IMPRESSION: Unremarkable renal sonogram. Medical problem list: Acute renal injury with rhabdomyolysis secondary to severe dehydration Hypertension History of CAD/CVA Hyperlipidemia GERD Brief History of Present Illness: 60-year-old male presented to the emergency room with increase muscle spasm, fatigue. Patient reports that he was dehydrated. He had been working outside. Patient was evaluated in the emergency room. Patient found to have acute renal injury with mild rhabdomyolysis. Patient admitted for further evaluation and treatment. Hospital Course: Patient presented with increased muscle spasm, fatigue. Patient had been outside working. Patient found to have acute renal injury with rhabdomyolysis secondary to severe dehydration. The patient was admitted for further evaluation and treatment. Nephrology was consulted. Renal ultrasound was unremarkable. Patient required IV fluids and sodium bicarb. Renal function now back to baseline. Patient without significant symptoms. No evidence of ME or heart failure. At discharge patient will need to increase his oral intake. Education on rhabdomyolysis, acute renal injury and prevention of dehydration provided. Patient may continue with his home medications. May need to hold Lipitor/lisinopril for at least 7 days due to renal injury/rhabdomyolysis. Recommend to recheck lab-BMP, CPK in 1 week to monitor his progress. Patient with history of hypertension, CAD/CVA, hyperlipidemia. As recommended above patient may continue with his current medications of aspirin 81 mg daily, Prasugrel 10 mg daily, Lipitor 40 mg daily, metoprolol 25 mg 1 pill twice daily, and lisinopril 20 mg daily. May need to hold lisinopril if blood pressure less than 120 systolic. May need to hold Lipitor for at least 7 days due to his acute renal injury and a rhabdomyolysis. Recommend to monitor blood pressure daily. Recommend to maintain blood pressure less 150/80. Further adjustment can be done by his PCP. Patient with history of GERD. At discharge patient will continue with Protonix 40 mg daily. Vital Signs/Physical Exam: Temp Pulse Resp BP Pulse Ox 98.4 F 61 18 140/75 98 05/02/20 04:00 05/02/20 08:24 05/02/20 04:00 05/02/20 08:24 05/02/20 04:00 General: Alert, In no apparent distress, Oriented x3, Cooperative HEENT: Atraumatic Neck: Supple Respiratory: Clear to auscultation bilaterally, Normal air movement Cardiovascular: Normal pulses, Regular rate/rhythm Gastrointestinal: Normal bowel sounds, Soft and benign, Non-distended, No tenderness, No masses, No rebound, No guarding Musculoskeletal: No erythema, No tenderness, No warmth Integumentary: No tenderness/swelling, No erythema, No warmth, No cyanosis Neurological: Normal speech, Normal strength at 5/5 x4 extr, Normal tone, Normal affect Laboratory Data at Discharge: WBC 12.4 K/uL (4.3-10.9) H 05/02/20 06:05 Hgb 13.0 g/dL (13.6-17.9) L 05/02/20 06:05 Hct 38.0 % (39.6-49.0) L 05/02/20 06:05 Plt Count 256 K/uL (152-406) 05/02/20 06:05 PT 11.6 SECONDS (9.5-12.5) 05/01/20 03:25 INR 0.98 05/01/20 03:25 APTT 26.6 SECONDS (24.3-36.9) 05/01/20 03:25 Sodium 143 mmol/L (136-145) 05/02/20 06:05 Potassium 4.4 mmol/L (3.5-5.1) 05/02/20 06:05 BUN 20 mg/dL (7-18) H D 05/02/20 06:05 Creatinine 0.87 mg/dL (0.55-1.3) D 05/02/20 06:05 Glucose 92 mg/dL (74-106) 05/02/20 06:05 Uric Acid 10.7 mg/dL (3.5-7.2) H 05/01/20 03:25 Phosphorus 1.5 mg/dL (2.5-4.9) L 05/02/20 06:05 Magnesium 2.7 mg/dL (1.8-2.4) H 05/02/20 06:05 Total Bilirubin 0.9 mg/dL (0.2-1.0) 05/01/20 03:25 AST 9 U/L (15-37) L 05/01/20 03:25 ALT 28 U/L (12-78) 05/01/20 03:25 Alkaline Phosphatase 90 U/L (45-117) 05/01/20 03:25 Home Medications: Nitroglycerin [Nitrostat*] 0.4 mg SL PRN PRN 10/09/19 Prasugrel HCl 10 mg PO DAILY 10/09/19 Aspirin [[place] Aspirin] 81 mg PO DAILY 02/27/20 Atorvastatin Calcium 40 mg PO BEDTIME #30 tablet 02/27/20 Metoprolol Tartrate [Lopressor*] 25 mg PO BID #60 tab 02/27/20 Pantoprazole [Protonix Tab*] 40 mg PO DAILY #30 tab 02/27/20 Lisinopril [Zestril] 1 tab PO DAILY 05/02/20 Patient Discharge Instructions: 1. Recommend follow up with PCP in 1 week to follow up this hospitalization. 2. Patient presented with increased muscle spasm, fatigue. Patient had been outside working. Patient found to have acute renal injury with rhabdomyolysis secondary to severe dehydration. The patient was admitted for further evaluation and treatment. Nephrology was consulted. Renal ultrasound was unremarkable. Patient required IV fluids and sodium bicarb. Renal function now back to baseline. Patient without significant symptoms. No evidence of ME or heart failure. At discharge patient will need to increase his oral intake. Education on rhabdomyolysis, acute renal injury and prevention of dehydration provided. Patient may continue with his home medications. May need to hold Lipitor/lisinopril for at least 7 days due to renal injury/rhabdomyolysis. Recommend to recheck lab-BMP, CPK in 1 week to monitor his progress. 3. Patient with history of hypertension, CAD/CVA, hyperlipidemia. As recommended above patient may continue with his current medications of aspirin 81 mg daily, Prasugrel 10 mg daily, Lipitor 40 mg daily, metoprolol 25 mg 1 pill twice daily, and lisinopril 20 mg daily. May need to hold lisinopril if blood pressure less than 120 systolic. May need to hold Lipitor for at least 7 days due to his acute renal injury and a rhabdomyolysis. Recommend to monitor blood pressure daily. Recommend to maintain blood pressure less 150/80. Further adjustment can be done by his PCP. 4. Patient with history of GERD. At discharge patient will continue with Protonix 40 mg daily. Diet: AHA Activity: Fall precautions Time spent managing pt's care (in minutes): 55
[2020-05-02 10:16] VITALS: O2SAT 99
[2020-05-05 19:03] LABS: HBsAG Nonreactive (Nonreactive)
== END 2020-05-02 11:06 | disposition home or self-care (01) | DRG 683 ==
LOC: ER 11:40 → ERHOLD 14:23 → 2ND 16:40
PROVIDERS: ADMIT Hospitalist; ATTEND Family Medicine
DX: N17.9 Acute kidney failure, unspecified (principal); I25.110 Atherosclerotic heart disease of native coronary artery with unstable angina pectoris; E87.1 Hypo-osmolality and hyponatremia; E87.2 Acidosis; M62.82 Rhabdomyolysis; E86.0 Dehydration; I10 Essential (primary) hypertension; E78.00 Pure hypercholesterolemia, unspecified; E83.51 Hypocalcemia; N17.0 Acute kidney failure with tubular necrosis; I25.2 Old myocardial infarction; Z11.59 Encounter for screening for other viral diseases
CPT/HCPCS: 36415; 76770; 80048; 80053; 81001; 81003; 82550; 82570; 83735; 84100; 84300; 84550; 85025; 85610; 85730; 86317; 86704; 87340; 93005; 96360; 96361; 99285; J7030; U0002

== ENCOUNTER 2022-02-16 12:43 | Emergency (ER) | payer SELFPAY ==
--- NOTE | 2022-02-16 13:32 | RAD REPORT ---
EXAM DESCRIPTION: RAD - Chest Single View - 02/16/2022 1:25 pm CLINICAL HISTORY: CHEST PAIN COMPARISON: Move portable 02/26/2020 TECHNIQUE: AP portable chest image was obtained 02/16/2022 1:25 pm . FINDINGS: Lungs are clear. Lung parenchymal pattern matches comparison. No hilar mass or lymphadenop athy. Heart and vasculature are normal. No measurable pleural effusion and no pneumothorax. No acute bony abnormality seen. No acute aortic findings suspected. IMPRESSION: No acute cardiopulmonary process. No significant change from comparison study.
[2022-02-16 14:20] LABS: Absolute Lymphocytes (CBC) 1.4 K/uL (0.7-4.9); Hematocrit 43.2 % (39.6-49.0); Lymphocytes % 13.8 % (15.3-44.8); RBC Red Blood Cell Count 4.77 M/uL (4.33-5.43)
[2022-02-16 14:39] LABS: Potassium 3.9 mmol/L (3.5-5.1); Troponin High Sensitivity 4.9 pg/mL (<58.9)
--- NOTE | 2022-02-16 16:49 | ER ---
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 previous stent. 12 lead was normal sinus. when we arrived pain had subsided. initially bp was 136/96 upon arrival here it was 117/83. Coronavirus screen: At this time, the client does not indicate any symptoms associated with coronavirus-19. Ebola Screen: Patient denies travel to an Ebola-affected area in the 21 days before illness onset. Onset of symptoms was February 16, 2022. 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 +N but now i am feeling better. Initial Sepsis Screen: Does the patient meet any 2 criteria? No. Patient's initial sepsis screen is negative. Does the patient have a suspected source of infection? No. Patient's initial sepsis screen is negative. Risk Assessment: Do you want to hurt yourself or someone else? Patient reports no desire to harm self or others. 12:48 Acuity: ISIDRA 3 tw2 Triage Assessment: 12:51 General: Appears in no apparent distress. Behavior is calm, cooperative, appropriate tw2 for age. Pain: Denies pain. Cardiovascular: Reports chest pain that has resolved. Historical: - Allergies: 12:50 Ketorolac; tw2 12:50 Ibuprofen; tw2 - Home Meds: 12:50 aspirin 81 mg Oral TbEC 1 tab once daily [Active]; atorvastatin 40 mg Oral tab 1 tab tw2 once daily [Active]; nitroglycerin 0.4 mg SL subl 1 tab [Active]; pantoprazole 40 mg Oral TbEC 1 tab once daily [Active]; lisinopril 20 mg Oral tab 1 tab once daily [Active]; prasugrel 10mg daily Oral [Active]; - PMHx: 12:50 CVA; Depression; Myocardial infarction; Hypertension; gastritis; High Cholesterol; tw2 - Immunization history:: Client reports receiving the 2nd dose of the Covid vaccine. - Social history:: Smoking status: Patient denies any tobacco usage or history of. Screenin:00 Abuse screen: Denies threats or abuse. Denies injuries from another. jh6 15:00 Nutritional screening: No deficits noted. Tuberculosis screening: No symptoms or risk jh6 factors identified. Fall Risk Assessment: 15:00 General: Pt moved to room from internal lobby at this time. . jh6 15:00 Pain: Complains of pain in chest Pain currently is 3 out of 10 on a pain scale. Quality jh6 of pain is described as aching, pressure, Pain began suddenly, Is continuous, Aggravated by exercise, working outside. 17:00 Reassessment: No changes from previously documented assessment. Patient denies pain at 6 this time. 17:10 General: second troponin came back negative, pt has no complaints when asked and stated jh that he is going to follow up with pcp in am. . Vital Signs: 12:48 BP 130 / 85; Pulse 88; Resp 17; Temp 98.3(TE); Pulse Ox 99% on R/A; Weight 76.2 kg; tw2 Height 5 ft. 5 in. (165.10 cm) (R); Pain 0/10; 15:50 BP 156 / 76; Pulse 79; Resp 18; Pulse Ox 100% ; Pain 0/10; jh6 12:48 Body Mass Index 27.96 (76.20 kg, 165.10 cm) tw2 ED Course: 12:44 Patient arrived in ED. as 12:47 Arm band placed on. tw2 12:50 Triage completed. tw2 13:00 Torres Walsh MD is Attending Physician. kdr 13:00 EKG completed in triage. Results shown to . tw2 13:27 XRAY Chest (1 view) In Process Unspecified. EDMS 14:06 Inserted saline lock: 20 gauge in right antecubital area, using aseptic technique. tp1 Blood collected. 15:00 bus driver/monitor on. Pulse ox on. NIBP on. jh6 15:00 Bed in low position. Call light in reach. Side rails up X 1. Adult w/ patient. jh6 15:00 No provider procedures requiring assistance completed. jh6 15:47 April Soler, RN is Primary Nurse. 6 16:02 Lab(s) recollected, by me. 6 17:00 IV discontinued, intact, bleeding controlled, No redness/swelling at site. Pressure 6 dressing applied. Administered Medications: No medications were administered Outcome: 16:49 Discharge ordered by . kdr 17:00 Discharged to home ambulatory. jh6 17:00 Condition: improved 17:00 Discharge instructions given to patient, Instructed on discharge instructions, follow up and referral plans. Demonstrated understanding of instructions, follow-up care. 17:34 Patient left the ED. [facility] Signatures: Dispatcher [employer] EDMS Torres Walsh MD MD kdr Martinez, Amelia as Wise, Tara RN RN tw2 April Soler, RN RN 6 Nadya Blandon tp1
--- NOTE | 2022-02-16 16:49 | EDPHYS ---
Physician Documentation [facility] Name: Heber Peña Age: 61 yrs Sex: Male : 1960 Arrival Date: 02/16/2022 Time: 12:44 Bed 20 Private MD: ED Physician Torres Walsh HPI: 02/16 17:41 This 61 yrs old Male presents to ER via EMS with complaints of Chest Pain. kdr 17:41 The patient or guardian reports chest pain that is located primarily in the anterior kdr chest wall, right, chest diffusely, anterior aspect of right upper chest, anterior aspect of left upper chest and left lateral anterior chest. Onset: suddenly, just prior to arrival, this morning, at 10:00. The pain does not radiate. Associated signs and symptoms: Pertinent positives: Pertinent negatives: cough, diaphoresis, dizziness, nausea, shortness of breath. The chest pain is described as sharp. Duration: The patient or guardian reports a single episode, that is now resolved. Severity of pain: At its worst the pain was moderate severe just prior to arrival, in the emergency department the pain has resolved and did so just prior to arrival. The patient has not experienced similar symptoms in the past. The patient has not recently seen a physician. Historical: - Allergies: 12:50 Ketorolac; tw2 12:50 Ibuprofen; tw2 - Home Meds: 12:50 aspirin 81 mg Oral TbEC 1 tab once daily [Active]; atorvastatin 40 mg Oral tab 1 tab tw2 once daily [Active]; nitroglycerin 0.4 mg SL subl 1 tab [Active]; pantoprazole 40 mg Oral TbEC 1 tab once daily [Active]; lisinopril 20 mg Oral tab 1 tab once daily [Active]; prasugrel 10mg daily Oral [Active]; - PMHx: 12:50 CVA; Depression; Myocardial infarction; Hypertension; gastritis; High Cholesterol; tw2 - Immunization history:: Client reports receiving the 2nd dose of the Covid vaccine. - Social history:: Smoking status: Patient denies any tobacco usage or history of. ROS: 17:41 Constitutional: Negative for fever, chills, and weight loss, Eyes: Negative for injury, kdr pain, redness, and discharge, ENT: Negative for injury, pain, and discharge, Neck: Negative for injury, pain, and swelling, Respiratory: Negative for shortness of breath, cough, wheezing, and pleuritic chest pain, Abdomen/GI: Negative for abdominal pain, nausea, vomiting, diarrhea, and constipation, Back: Negative for injury and pain, : Negative for injury, bleeding, discharge, and swelling, MS/Extremity: Negative for injury and deformity, Skin: Negative for injury, rash, and discoloration, Neuro: Negative for headache, weakness, numbness, tingling, and seizure activity. Psych: Negative for depression, anxiety, suicide ideation, homicidal ideation, and hallucinations, Allergy/Immunology: Negative for hives, rash, and allergies, Endocrine: Negative for neck swelling, polydipsia, polyuria, polyphagia, and marked weight changes, Hematologic/Lymphatic: Negative for swollen nodes, abnormal bleeding, and unusual bruising. 17:41 Cardiovascular: Positive for chest pain, of the chest, Negative for edema, orthopnea, palpitations, paroxysmal nocturnal dyspnea. Exam: 13:01 ECG was reviewed by the Attending Physician. kdr 17:41 Constitutional: This is a well developed, well nourished patient who is awake, alert, kdr and in no acute distress. Head/Face: Normocephalic, atraumatic. Eyes: Pupils equal round and reactive to light, extra-ocular motions intact. Lids and lashes normal. Conjunctiva and sclera are non-icteric and not injected. Cornea within normal limits. Periorbital areas with no swelling, redness, or edema. Neck: Trachea midline, no thyromegaly or masses palpated, and no cervical lymphadenopathy. Supple, full range of motion without nuchal rigidity, or vertebral point tenderness. No Meningismus. Chest/axilla: Normal chest wall appearance and motion. Nontender with no deformity. No lesions are appreciated. Cardiovascular: Regular rate and rhythm with a normal S1 and S2. No gallops, murmurs, or rubs. Normal PMI, no JVD. No pulse deficits. Respiratory: Lungs have equal breath sounds bilaterally, clear to auscultation and percussion. No rales, rhonchi or wheezes noted. No increased work of breathing, no retractions or nasal flaring. Abdomen/GI: Soft, non-tender, with normal bowel sounds. No distension or tympany. No guarding or rebound. No evidence of tenderness throughout. Back: No spinal tenderness. No costovertebral tenderness. Full range of motion. Skin: Warm, dry with normal turgor. Normal color with no rashes, no lesions, and no evidence of cellulitis. MS/ Extremity: Pulses equal, no cyanosis. Neurovascular intact. Full, normal range of motion. Neuro: Awake and alert, GCS 15, oriented to person, place, time, and situation. Cranial nerves II-XII grossly intact. Motor strength 5/5 in all extremities. Sensory grossly intact. Cerebellar exam normal. Normal gait. Psych: Awake, alert, with orientation to person, place and time. Behavior, mood, and affect are within normal limits. Vital Signs: 12:48 BP 130 / 85; Pulse 88; Resp 17; Temp 98.3(TE); Pulse Ox 99% on R/A; Weight 76.2 kg; tw2 Height 5 ft. 5 in. (165.10 cm) (R); Pain 0/10; 15:50 BP 156 / 76; Pulse 79; Resp 18; Pulse Ox 100% ; Pain 0/10; jh6 12:48 Body Mass Index 27.96 (76.20 kg, 165.10 cm) tw2 MDM: 16:49 Patient medically screened. kdr 17:41 Data reviewed: vital signs, nurses notes, lab test result(s), radiologic studies. kdr Counseling: I had a detailed discussion with the patient and/or guardian regarding: the historical points, exam findings, and any diagnostic results supporting the discharge/admit diagnosis, lab results, radiology results, the need for outpatient follow up. 02/16 13:01 Order name: Basic Metabolic Panel; Complete Time: 14:39 [facility] 02/16 13:01 Order name: CBC with Diff; Complete Time: 14:39 [facility] 02/16 13:01 Order name: NT PRO-BNP; Complete Time: 14:39 [facility] 02/16 13:01 Order name: Troponin HS; Complete Time: 14:39 [facility] 02/16 13:01 Order name: XRAY Chest (1 view); Complete Time: 14:39 [facility] 02/16 13:01 Order name: EKG; Complete Time: 13:02 [facility] 02/16 13:01 Order name: Cardiac monitoring [facility] 02/16 13:01 Order name: EKG - Nurse/Tech; Complete Time: 14:21 [facility] 02/16 13:01 Order name: IV Saline Lock; Complete Time: 14:06 kdr 02/16 15:55 Order name: Troponin High Sensitivity; Complete Time: 16:51 [facility] 02/16 13:01 Order name: Labs collected and sent [facility] 02/16 13:01 Order name: O2 Per Protocol [facility] 02/16 13:01 Order name: O2 Sat Monitoring kdr EC: Rate is 73 beats/min. Rhythm is regular, Sinus Rhythm with No ectopy. QRS [place] is kdr Normal. GA interval is normal. QRS interval is normal. QT interval is normal. Clinical impression: NSR w/ Non-specific ST/T Changes. Administered Medications: No medications were administered Disposition Summary: 02/16/22 16:49 Discharge Ordered Location: Home kdr Problem: new kdr Symptoms: have improved kdr Condition: Stable kdr Diagnosis - Chest pain, unspecified kdr Followup: kdr - With: Private Physician - When: 2 - 3 days - Reason: If symptoms return, Further diagnostic work-up, Recheck today's complaints, Continuance of care, Re-evaluation by your physician Discharge Instructions: - Discharge Summary Sheet kdr - Nonspecific Chest Pain, Adult, [id number] kdr Forms: - Medication Reconciliation Form kdr - Thank You Letter kdr Signatures: Dispatcher [employer] EDMS Torres Walsh MD MD kdr Maryellen Moser RN RN tw2 Corrections: (The following items were deleted from the chart) 15:01 14:41 Troponin High Sensitivity+C.LAB.BRZ ordered. EDMS EDMS 15:01 14:58 Type and Screen ordered. EDMS EDMS 15:01 14:58 Basic Metabolic Panel ordered. EDMS EDMS 15:01 14:58 CBC with Automated Diff ordered. EDMS EDMS
[2022-02-16 17:40] VITALS: TEMP 98.3
[2022-02-16 17:42] VITALS: BP 156/76; O2SAT 100
--- NOTE | 2022-02-16 19:17 | EKG ---
Test Date: 2022-02-16 Test Time: 12:54:11 Ict Customer Support Officer: ANDRIY MEASUREMENT RESULTS: Intervals: Rate: 73 TX: 152 QRSD: 80 QT: 352 QTc: 387 [place]: P: 41 TX: 152 QRS: 55 T: 8 INTERPRETIVE STATEMENTS: Normal sinus rhythm Normal ECG Compared to ECG 04/30/2020 12:32:38 No significant changes Electronically Signed On 02-16-22 19:15:42 CDT by Kody Khan
== END 2022-02-16 17:34 | disposition home or self-care (01) ==
LOC: ER 12:43
DX: R07.9 Chest pain, unspecified (principal); I10 Essential (primary) hypertension; E78.00 Pure hypercholesterolemia, unspecified; F32.A Depression, unspecified; I25.2 Old myocardial infarction
CPT/HCPCS: 36415; 71045; 80048; 83880; 84484; 85025; 93005; 99284

== ENCOUNTER 2022-06-18 09:40 | Emergency (ER) | payer SELFPAY ==
[2022-06-18 10:26] LABS: Absolute Lymphocytes (CBC) 1.8 K/uL (0.7-4.9); Hematocrit 39.7 % (39.6-49.0); Lymphocytes % 23.9 % (15.3-44.8); MCV 91.3 fL (80-100); MPV 7.7 fL (7.6-11.3); RBC Red Blood Cell Count 4.35 M/uL (4.33-5.43)
[2022-06-18 10:40] LABS: Potassium 3.5 mmol/L (3.5-5.1); Troponin High Sensitivity 5.9 pg/mL (<58.9)
--- NOTE | 2022-06-18 11:36 | RAD REPORT ---
EXAM DESCRIPTION: Hellen Single View06/18/2022 11:24 am CLINICAL HISTORY: Chest pain COMPARISON: February 2022 FINDINGS: The lungs appear clear of acute infiltrate. The heart is normal size IMPRESSION: No acute abnormalities displayed
--- NOTE | 2022-06-18 13:45 | ER ---
Nurse's Notes [facility] Name: Heber Peña Age: 62 yrs Sex: Male : 1960 Arrival Date: 06/18/2022 Time: 09:42 Bed 5 Private MD: Diagnosis: Chest discomfort Presentation: 06/18 09:42 Chief complaint: Patient states: "I feel dehydrated", pt reports diarrhea since aa5 night. Denies nausea and vomiting. Pt reports his chest feels numb and goes up to his neck, began this morning. 09:42 Coronavirus screen: At this time, the client does not indicate any symptoms associated aa5 with coronavirus-19. Ebola Screen: Patient denies travel to an Ebola-affected area in the 21 days before illness onset. Initial Sepsis Screen: Does the patient meet any 2 criteria? No. Patient's initial sepsis screen is negative. Does the patient have a suspected source of infection? No. Patient's initial sepsis screen is negative. Risk Assessment: Do you want to hurt yourself or someone else? Patient reports no desire to harm self or others. Onset of symptoms was June 2022. 09:42 Acuity: ISIDRA 2 aa5 09:42 Method Of Arrival: Wheelchair aa5 Historical: - Allergies: 09:42 Ibuprofen; aa5 09:42 Ketorolac; aa5 09:42 diclofenac sodium; aa5 - PMHx: 09:42 CVA; Depression; gastritis; High Cholesterol; Hypertension; Myocardial infarction; aa5 - Immunization history:: Adult Immunizations unknown. - Social history:: Smoking status: Patient denies any tobacco usage or history of. Screenin:00 Abuse screen: Denies threats or abuse. Nutritional screening: No deficits noted. aa5 Tuberculosis screening: No symptoms or risk factors identified. Fall Risk None identified. Assessment: 09:42 General: Appears comfortable, Behavior is calm, cooperative. Pain: Denies pain. Neuro: aa5 Level of Consciousness is awake, alert, obeys commands, Oriented to person, place, time, situation. Cardiovascular: Reports numbness to chest radiating to neck since this morning. Denies chest pain, Heart tones S1 S2 present Rhythm is sinus rhythm. Respiratory: Airway is patent Respiratory effort is even, unlabored, Respiratory pattern is regular, symmetrical, Breath sounds are clear bilaterally. GI: Abdomen is round non-distended, Bowel sounds present X 4 quads. Abd is soft and non tender X 4 quads. Reports diarrhea, Patient currently denies nausea, vomiting. : No signs and/or symptoms were reported regarding the genitourinary system. EENT: No signs and/or symptoms were reported regarding the EENT system. Derm: Skin is pink, warm \\T\\ dry. Musculoskeletal: Range of motion: intact in all extremities. 11:00 Reassessment: Patient is alert, oriented x 3, equal unlabored respirations, skin aa5 warm/dry/pink. 12:00 Reassessment: Patient is alert, oriented x 3, equal unlabored respirations, skin aa5 warm/dry/pink. Pt has had 2 episodes of diarrhea during ER stay. . 12:55 Reassessment: Patient is alert, oriented x 3, equal unlabored respirations, skin aa5 warm/dry/pink. Patient denies pain at this time. Patient states feeling better. Patient states symptoms have improved. 14:05 Reassessment: Patient is alert, oriented x 3, equal unlabored respirations, skin aa5 warm/dry/pink. Vital Signs: 09:42 BP 118 / 77; Pulse 62; Resp 16 S; Temp 98.0(O); Pulse Ox 100% on R/A; Weight 76.2 kg aa5 (R); Height 5 ft. 6 in. (167.64 cm) (R); Pain 0/10; 10:00 BP 106 / 66; Pulse 73; Resp 14 S; Pulse Ox 100% on R/A; Pain 0/10; aa5 11:00 BP 120 / 79; Pulse 61; Resp 16 S; Pulse Ox 100% on R/A; aa5 12:55 BP 113 / 76; Pulse 60; Resp 14 S; Pulse Ox 100% on R/A; aa5 14:00 BP 116 / 76; Pulse 63; Resp 16 S; Temp 98.2(TE); Pulse Ox 100% on R/A; aa5 09:42 Body Mass Index 27.12 (76.20 kg, 167.64 cm) aa5 ED Course: 09:42 Patient arrived in ED. am2 09:42 Torres Walsh MD is Attending Physician. kdr 09:42 Patient maintains SpO2 saturation greater than 95% on room air. aa5 09:42 Arm band placed on Patient placed in an exam room, on a stretcher. aa5 09:42 Patient has correct armband on for positive identification. Placed in gown. Bed in low aa5 position. Call light in reach. Side rails up X2. Client placed on continuous cardiac and pulse oximetry monitoring. NIBP monitoring applied. 09:47 EKG done, by ED staff, reviewed by Torres Walsh MD. aa5 09:59 Marychuy Dumont, RN is Primary Nurse. aa5 10:41 Triage completed. aa5 11:26 XRAY Chest (1 view) In Process Unspecified. EDMS 14:05 No provider procedures requiring assistance completed. IV discontinued, intact, aa5 bleeding controlled, No redness/swelling at site. Pressure dressing applied. Administered Medications: No medications were administered Medication: 14:05 VIS not applicable for this client. aa5 Outcome: 13:44 Discharge ordered by MD. kdr 14:05 Discharged to home ambulatory, with family. aa5 14:05 Condition: stable 14:05 Discharge instructions given to patient, family, Instructed on discharge instructions, follow up and referral plans. Demonstrated understanding of instructions, follow-up care. 14:11 Patient left the ED. jl7 Signatures: Dispatcher [employer] EDDE Torres Walsh MD MD [facility] Marychuy Dumont, RN RN aa5 Nimesh Michaud RN RN jl7 Halima Jade Mary RN RN mb9 Corrections: (The following items were deleted from the chart) 10:00 09:45 Kate Gilbert, MARIANO is Primary Nurse. mb9 aa5 10:00 09:59 Primary Nurse role handed off by Kate Gilbert RN aa5 aa5 10:43 10:02 EKG done, by ED staff, reviewed by Torres cabral aa5
--- NOTE | 2022-06-18 13:45 | EDPHYS ---
Physician Documentation [facility] Name: Heber Peña Age: 62 yrs Sex: Male : 1960 Arrival Date: 06/18/2022 Time: 09:42 Bed 5 Private MD: ED Physician Torres Walsh HPI: 06/18 13:37 This 62 yrs old Male presents to ER via Wheelchair with complaints of Chest kdr Pain. 13:37 The patient or guardian reports chest pain that is located primarily in the anterior kdr chest wall, chest diffusely. Onset: this morning. The pain radiates to left neck. Associated signs and symptoms: The patient has no apparent associated signs or symptoms. The chest pain is described as aching, burning. Duration: The patient or guardian reports a single episode, that is still ongoing, but improving. Modifying factors: The symptoms are alleviated by nothing. the symptoms are aggravated by nothing. Severity of pain: At its worst the pain was mild moderate just prior to arrival, in the emergency department the pain is unchanged. The patient has experienced similar episodes in the past, several times, today's symptoms are similar. Patient presents to the ED with multiple complaints including dehydration since , and chest discomfort on the left lateral aspect that radiates into his neck. This latter discomfort began this morning. The patient has had similar chest pain/discomfort a number of times without a diagnosis ever being rendered. Historical: - Allergies: 09:42 Ibuprofen; aa5 09:42 Ketorolac; aa5 09:42 diclofenac sodium; aa5 - PMHx: 09:42 CVA; Depression; gastritis; High Cholesterol; Hypertension; Myocardial infarction; aa5 - Immunization history:: Adult Immunizations unknown. - Social history:: Smoking status: Patient denies any tobacco usage or history of. ROS: 13:37 Constitutional: Negative for fever, chills, and weight loss, Eyes: Negative for injury, kdr pain, redness, and discharge, ENT: Negative for injury, pain, and discharge, Neck: Negative for injury, pain, and swelling, Respiratory: Negative for shortness of breath, cough, wheezing, and pleuritic chest pain, Back: Negative for injury and pain, : Negative for injury, bleeding, discharge, and swelling, MS/Extremity: Negative for injury and deformity, Skin: Negative for injury, rash, and discoloration, Neuro: Negative for headache, weakness, numbness, tingling, and seizure activity. 13:37 Cardiovascular: Positive for chest pain, Negative for chest pain, edema, orthopnea, palpitations, paroxysmal nocturnal dyspnea, acute changes. Exam: 11:55 ECG was reviewed by the Attending Physician. kdr 13:37 Constitutional: This is a well developed, well nourished patient who is awake, alert, kdr and in no acute distress. Head/Face: Normocephalic, atraumatic. Eyes: Pupils equal round and reactive to light, extra-ocular motions intact. Lids and lashes normal. Conjunctiva and sclera are non-icteric and not injected. Cornea within normal limits. Periorbital areas with no swelling, redness, or edema. Neck: Trachea midline, no thyromegaly or masses palpated, and no cervical lymphadenopathy. Supple, full range of motion without nuchal rigidity, or vertebral point tenderness. No Meningismus. Chest/axilla: Normal chest wall appearance and motion. Nontender with no deformity. No lesions are appreciated. Cardiovascular: Regular rate and rhythm with a normal S1 and S2. No gallops, murmurs, or rubs. Normal PMI, no JVD. No pulse deficits. Respiratory: Lungs have equal breath sounds bilaterally, clear to auscultation and percussion. No rales, rhonchi or wheezes noted. No increased work of breathing, no retractions or nasal flaring. Abdomen/GI: Soft, non-tender, with normal bowel sounds. No distension or tympany. No guarding or rebound. No evidence of tenderness throughout. Back: No spinal tenderness. No costovertebral tenderness. Full range of motion. Skin: Warm, dry with normal turgor. Normal color with no rashes, no lesions, and no evidence of cellulitis. MS/ Extremity: Pulses equal, no cyanosis. Neurovascular intact. Full, normal range of motion. Vital Signs: 09:42 BP 118 / 77; Pulse 62; Resp 16 S; Temp 98.0(O); Pulse Ox 100% on R/A; Weight 76.2 kg aa5 (R); Height 5 ft. 6 in. (167.64 cm) (R); Pain 0/10; 10:00 BP 106 / 66; Pulse 73; Resp 14 S; Pulse Ox 100% on R/A; Pain 0/10; aa5 11:00 BP 120 / 79; Pulse 61; Resp 16 S; Pulse Ox 100% on R/A; aa5 12:55 BP 113 / 76; Pulse 60; Resp 14 S; Pulse Ox 100% on R/A; aa5 14:00 BP 116 / 76; Pulse 63; Resp 16 S; Temp 98.2(TE); Pulse Ox 100% on R/A; aa5 09:42 Body Mass Index 27.12 (76.20 kg, 167.64 cm) aa5 MDM: 13:37 Data reviewed: vital signs, nurses notes, lab test result(s), radiologic studies. kdr Counseling: I had a detailed discussion with the patient and/or guardian regarding: the historical points, exam findings, and any diagnostic results supporting the discharge/admit diagnosis, lab results, radiology results. 13:44 Patient medically screened. kdr 06/18 09:44 Order name: Basic Metabolic Panel; Complete Time: 12:24 kdr 06/18 09:44 Order name: CBC with Diff; Complete Time: 12:24 kdr 06/18 09:44 Order name: Troponin HS; Complete Time: 12:24 kdr 06/18 09:44 Order name: XRAY Chest (1 view); Complete Time: 12:24 kdr 06/18 09:44 Order name: EKG; Complete Time: 09:46 kdr 06/18 12:25 Order name: Troponin High Sensitivity; Complete Time: 13:36 kdr 06/18 09:44 Order name: Cardiac monitoring; Complete Time: 10:00 kdr 06/18 09:44 Order name: EKG - Nurse/Tech; Complete Time: 10:00 kdr 06/18 09:44 Order name: IV Saline Lock; Complete Time: 10:43 kdr 06/18 09:44 Order name: Labs collected and sent; Complete Time: 10:43 kdr 06/18 09:44 Order name: O2 Per Protocol; Complete Time: 10:00 kdr 06/18 09:44 Order name: O2 Sat Monitoring; Complete Time: 10:00 kdr EC:55 Rate is 62 beats/min. Rhythm is regular, Normal Sinus Rhythm with No ectopy. QRS Cannon kdr is Normal. [place] interval is normal. QRS interval is normal. QT interval is normal. No Q waves. Clinical impression: NSR w/ Non-specific ST/T Changes. Administered Medications: No medications were administered Disposition Summary: 06/18/22 13:44 Discharge Ordered Location: Home kdr Problem: new kdr Symptoms: have improved kdr Condition: Stable kdr Diagnosis - Chest discomfort kdr Followup: kdr - With: Private Physician - When: 2 - 3 days - Reason: If symptoms return, Further diagnostic work-up, Recheck today's complaints, Continuance of care, Re-evaluation by your physician Discharge Instructions: - Discharge Summary Sheet kdr - Nonspecific Chest Pain, Adult, [id number] kdr - Food Choices to Help Relieve Diarrhea, Adult jl7 Forms: - Medication Reconciliation Form kdr - Thank You Letter kdr Signatures: Dispatcher [employer] Torres Matthews MD MD kdr Marychuy Dumont RN RN aa5
[2022-06-18 14:42] VITALS: TEMP 98; O2SAT 100
[2022-06-18 14:44] VITALS: BP 120/79
--- NOTE | 2022-06-19 09:27 | EKG ---
Test Date: 2022-06-18 Test Time: 09:47:22 Continuous Improvement Intern: MB MEASUREMENT RESULTS: Intervals: Rate: 62 GA: 154 QRSD: 84 QT: 424 QTc: 430 Mercer: P: 50 GA: 154 QRS: 11 T: 24 INTERPRETIVE STATEMENTS: Normal sinus rhythm Normal ECG Compared to ECG 02/16/2022 12:54:11 No significant changes Electronically Signed On 06-19-22 09:26:49 CDT by Kody Khan
== END 2022-06-18 14:11 | disposition home or self-care (01) ==
LOC: ER 09:40
DX: R07.89 Other chest pain (principal); I10 Essential (primary) hypertension; I25.2 Old myocardial infarction; Z88.6 Allergy status to analgesic agent; Z88.8 Allergy status to other drugs, medicaments and biological substances
CPT/HCPCS: 36415; 71045; 80048; 84484; 85025; 93005; 99284